=== PATIENT | female | born 1930 | race Caucasian/White ===

== ENCOUNTER 2017-01-02 12:24 | Inpatient (IN) | payer MEDICARE, OTHER ==
[~2017-01-02] VITALS: Ht 160 cm; Wt 69.0 kg
[~2017-01-02 12:24] MED LIST: ACET325T9 PO; ACET650T89 PO; ASPI325T4 PO; CALC-77 PO; CYAN10005 PO; DULO30CA43 PO; ENAL20TA PO; ESOM20CA PO; FEBU40TA PO; FERR325C PO; FERR325T3 PO; FURO20TA3 PO; GING550C PO; HYDR-965 PO; LEVO175T5 PO; LEVO200T5 PO; LOPE1LIQ7 PO; MECL25TA3 PO; METO50TA2 PO; NIFE60TA12 PO; POLY17PO5 PO; SULF1TAB24 PO; TOLT4CAP PO
--- NOTE | 2017-01-02 13:11 | PHYS DOC ---
Past Medical History Past Medical History: Arthritis, Constipation, Diabetes-Type II, Hypertension, [place], Renal Disease, Other Additional Past Medical Histor: torn rotator cuff -right, neurpathy,leaky valve ,CHRONIC PAIN,MAC DEGENERATI Past Surgical History: Cholecystectomy, Hysterectomy, Knee Replacement, Tonsillectomy, Other Additional Past Surgical Histo: hernia, back, cataract, detached retina, hammer toe, blader sling Alcohol Use: None Drug Use: None Adult General Chief Complaint Chief Complaint: NAUSEA/VOMITING/DIARRHA HPI HPI Patient is a 86 year old female who presents with nausea vomiting diarrhea and bradycardia. Patient states 11 AM today she became diaphoretic nauseated vomited. She had a bowel movement with black diarrhea stool with some trace red blood. Patient states she had a episode like this 6 months ago was hospitalized but they did not find a final obvious cause. Patient has a past history of coronary artery disease, bradycardia, hypothyroidism, hyperkalemia. Patient denies ever being a smoker. No alcohol use. Other surgical history of hysterectomy, cholecystectomy and appendectomy. Review of Systems Review of Systems Constitutional: Denies fever or chills Eyes: Denies change in visual acuity, redness, or eye pain HENT: Denies nasal congestion or sore throat Respiratory: Denies cough or shortness of breath Cardiovascular: No chest pain but bradycardic. GI: Denies abdominal pain. Positive nausea, vomiting, bloody stools and diarrhea : Denies dysuria or hematuria Musculoskeletal: Denies new back pain or joint pain Integument: Positive fungal rash under bilateral breasts, pannus and in genitalia. Neurologic: Denies headache, focal weakness or sensory changes Endocrine: Denies polyuria or polydipsia Current Medications Current Medications Current Medications Medications (Trade) Dose Ordered Sig/William Start Time Stop Time Status Last Admin Dose Admin Sodium Chloride (Iv Sodium Chloride 0.9% 1000ml Bag) 1,000 ml @ 120 mls/hr 1X ONCE 01/02/17 13:15 01/02/17 21:34 DC 01/02/17 13:38 120 MLS/HR Allergies Allergies Allergies Coded Allergies Type Severity Reaction Last Updated Verified fentanyl Allergy Intermediate rash with patch 04/25/16 Yes Physical Exam Physical Exam Constitutional: Well developed, well nourished, moderate acute distress, non- toxic appearance. HENT: Normocephalic, atraumatic, dry oropharynx , no oral exudates, nose normal. Eyes: PERRLA, EOMI, conjunctiva normal, no discharge. Neck: Normal range of motion, no tenderness, supple, no stridor. Cardiovascular:Heart bradycardia rate regular rhythm, no murmur Lungs & Thorax: Bilateral breath sounds clear to auscultation Abdomen: Bowel sounds normal, soft, no tenderness, no masses, no pulsatile masses. Skin: Warm, dry, fungal rash under bilateral breasts, pannus and genital area Back: No tenderness, no CVA tenderness. Extremities: No tenderness, no cyanosis, no clubbing, no edema. Neurologic: Alert and oriented X 3, normal motor function, normal sensory function, no focal deficits noted. Psychologic: Affect normal, judgement normal, mood normal. Current Patient Data Vital Signs Vital Signs Date Time Temp Pulse Resp B/P Pulse Ox O2 Delivery O2 Flow Rate FiO2 01/02/17 14:00 46 18 125/55 94 01/02/17 13:29 Room Air 01/02/17 12:24 97.7 97.7 Lab Values Laboratory Tests Test 01/02/17 12:40 01/02/17 13:15 01/02/17 13:40 White Blood Count 12.5x10^3/uL (4.0-11.0) H Red Blood Count 3.03x10^6/uL (3.50-5.40) L Hemoglobin 10.2g/dL (12.0-15.5) L Hematocrit 32.1% (36.0-47.0) L Mean Corpuscular Volume 106fL (79-100) H Mean Corpuscular Hemoglobin 34pg (25-35) Mean Corpuscular Hemoglobin Concent 32g/dL (31-37) Red Cell Distribution Width 16.3% (11.5-14.5) H Platelet Count 216x10^3/uL (140-400) Neutrophils (%) (Auto) 74% (31-73) H Lymphocytes (%) (Auto) 15% (24-48) L Monocytes (%) (Auto) 8% (0-9) Eosinophils (%) (Auto) 3% (0-3) Basophils (%) (Auto) 1% (0-3) Neutrophils # (Auto) 9.2x10^3uL (1.8-7.7) H Lymphocytes # (Auto) 1.9x10^3/uL (1.0-4.8) Monocytes # (Auto) 0.9x10^3/uL (0.0-1.1) Eosinophils # (Auto) 0.3x10^3/uL (0.0-0.7) Basophils # (Auto) 0.1x10^3/uL (0.0-0.2) Sodium Level 143mmol/L (136-145) Potassium Level 5.7mmol/L (3.5-5.1) H Chloride Level 111mmol/L (98-107) H Carbon Dioxide Level 19mmol/L (21-32) L Anion Gap 13 (6-14) Blood Urea Nitrogen 46mg/dL (7-20) H Creatinine 1.3mg/dL (0.6-1.0) H Estimated GFR (Cockcroft-Gault) 38.9 BUN/Creatinine Ratio 35 (6-20) H Glucose Level 96mg/dL (70-99) Calcium Level 8.7mg/dL (8.5-10.1) Total Bilirubin 0.2mg/dL (0.2-1.0) Aspartate Amino Transferase (AST) 19U/L (15-37) Alanine Aminotransferase (ALT) 14U/L (14-59) Alkaline Phosphatase 97U/L (46-116) Troponin I Quantitative < 0.017ng/mL (0.000-0.055) Total Protein 6.7g/dL (6.4-8.2) Albumin 3.2g/dL (3.4-5.0) L Albumin/Globulin Ratio 0.9 (1.0-1.7) L Lipase 208U/L (73-393) Urine Collection Type Unknown Urine Color Yellow Urine Clarity Cloudy Urine pH 5.0 Urine Specific [place] 1.010 Urine Protein 30mg/dL (NEG-TRACE) Urine Glucose (UA) Negativemg/dL (NEG) Urine Ketones (Stick) Negativemg/dL (NEG) Urine Blood Moderate (NEG) Urine Nitrite Negative (NEG) Urine Bilirubin Negative (NEG) Urine Urobilinogen Dipstick 0.2mg/dL (0.2 mg/dL) Urine Leukocyte Esterase Large (NEG) Urine RBC 6-10/HPF (0-2) Urine WBC >40/HPF (0-4) Urine Squamous Epithelial Cells Mod/LPF Urine Bacteria Many/HPF (0-FEW) Urine Hyaline Casts Moderate/HPF Stool Occult Blood Negative (NEG) Laboratory Tests 01/02/17 12:40 Laboratory Tests 01/02/17 12:40 Microbiology 01/02/17 Urine Culture - Final, Complete 01/02/17 Urine Culture Result 1 (ESTEBAN) - Final, Complete EKG EKG [] Interpretation Time: Sinus bradycardia with a rate of 45. Prolonged MO interval left axis deviation and incomplete right bundle branch block with left ventricular hypertrophy. Radiology/Procedures Radiology/Procedures [] Course & Med Decision Making Course & Med Decision Making Pertinent Labs and Imaging studies reviewed. (See chart for details) Discussed case with Dr. Clark dutton 42 he agreed with the patient requested GI consult with Dr. Daphne Yuen Disclaimer Alpa Disclaimer This electronic medical record was generated, in whole or in part, using a voice recognition dictation system. Departure Departure Impression: Primary Impression: Nausea & vomiting Additional Impressions: UTI (urinary tract infection) Lower GI bleed Fungal skin infection Disposition: 09 ADMITTED INPATIENT Admitting Physician: Bryn Rodas Condition: STABLE Referrals: RADHA BAUM MD (PCP) Problem Qualifiers SIRIA CHUA MD Jan 02, 2017 13:11
[2017-01-02 13:13] LABS: BASO # 0.1 x10^3/uL (0.0-0.2); BASO % 1 % (0-3); EOS % 3 % (0-3); HEMATOCRIT 32.1 % (36.0-47.0); HEMOGLOBIN 10.2 g/dL (12.0-15.5); LYMPH # 1.9 x10^3/uL (1.0-4.8); LYMPH % 15 % (24-48); MEAN CORPUSCULAR HEMOGLOBIN 34 pg (25-35); MEAN CORPUSCULAR HGB CONC 32 g/dL (31-37); MEAN CORPUSCULAR VOLUME 106 fL (79-100); MONO % 8 % (0-9); NEUT % 74 % (31-73); PLATELET COUNT 216 x10^3/uL (140-400); RED BLOOD COUNT 3.03 x10^6/uL (3.50-5.40); RED CELL DISTRIBUTION WIDTH 16.3 % (11.5-14.5); WHITE BLOOD COUNT 12.5 x10^3/uL (4.0-11.0)
[2017-01-02] MEDS ORDERED: IV NORMAL SALINE 1000ML BAG 1,000 ML IV ONE (13:15)
[2017-01-02 13:27] LABS: BILIRUBIN,URINE NEGATIVE (NEG); GLUCOSE,URINE NEGATIVE (NEG); NITRITE,URINE NEGATIVE (NEG); PROTEIN,URINE 30 mg/dL (NEG-TRACE); UROBILINOGEN,URINE 0.2 mg/dL (0.2 mg/dL)
[2017-01-02 13:30] LABS: CALCIUM 8.7 mg/dL (8.5-10.1); CREATININE 1.3 mg/dL (0.6-1.0); GFR 38.9; POTASSIUM 5.7 mmol/L (3.5-5.1)
[2017-01-02 13:35] LABS: ALBUMIN 3.2 g/dL (3.4-5.0); ALBUMIN/GLOBULIN RATIO 0.9 (1.0-1.7); TOTAL BILIRUBIN 0.2 mg/dL (0.2-1.0); TOTAL PROTEIN 6.7 g/dL (6.4-8.2)
--- NOTE | 2017-01-02 13:38 | RAD ---
Portable chest, 01/02/2017: History: Bradycardia, diaphoresis Comparison is made to a study from 09/29/2016. The heart size is normal. There is calcific plaquing and tortuosity of the thoracic aorta. The pulmonary vascularity is normal. No pulmonary infiltrates are seen. There is no evidence of pleural fluid. The bony structures are demineralized. Arthritic changes are evident at both shoulders. IMPRESSION: No acute cardiopulmonary abnormality is detected.
[2017-01-02 13:42] LABS: BACTERIA,URINE MANY /HPF (0-FEW); SQUAMOUS EPITHELIAL CELL,UR MOD /LPF; WBC,URINE >40 /HPF (0-4)
[2017-01-02 13:52] LABS: NEG OBC FOB NEG; POS OBC FOB POS
--- NOTE | 2017-01-02 14:13 | EKG ---
[facility] [address] [place] [address] Test Date: 2017-01-02 Test Time: 12:41:59 Pat Name: OSITO LOMELI Department: Room: Gender: F Associate Teacher: : [id number] Requested By: SIRIA CHUA Order Number: [id number] Reading MD: Measurements Intervals [place] Rate: 45 P: 61 PA: 252 QRS: -7 QRSD: 120 T: 142 QT: 472 QTc: 410 Interpretive Statements SINUS BRADYCARDIA PROLONGED PA INTERVAL LEFTWARD AXIS INCOMPLETE RIGHT BUNDLE BRANCH BLOCK LVH WITH REPOLARIZATION ABNORMALITY ABNORMAL ECG RI6.01 No previous ECG available for comparison
[2017-01-02 17:08] VITALS: BP 146/82
[2017-01-02] MEDS ORDERED: FURO20TA3 (18:40)
[2017-01-02] MEDS ORDERED: ENAL20TA PO (18:40)
[2017-01-02] MEDS ORDERED: CYAN50TA PO (18:40)
[2017-01-02] MEDS ORDERED: GABA300C8 (18:40)
[2017-01-02] MEDS ORDERED: TOLT4CAP PO (18:40)
[2017-01-02] MEDS ORDERED: NIFE60TA16 PO (18:40)
[2017-01-02] MEDS ORDERED: DULO60CA44 (18:40)
[2017-01-02] MEDS ORDERED: LOSA50TA6 (18:40)
[2017-01-02] MEDS ORDERED: LEVO200T PO (18:40)
[2017-01-02] MEDS ORDERED: CALC500T27 PO (18:40)
[2017-01-02] MEDS ORDERED: METO50TA2 PO (18:40)
[2017-01-02 19:59] VITALS: BP 137/60
[2017-01-02] MEDS: GABAPENTIN 300 MG CAPSULE. PO SCH ×2 (23:00→23:05)
[2017-01-02] MEDS: CEFTRIAXONE SODIUM 1 GM in IV NORMAL SALINE 50ML 50 ML IV SCH (23:06)
[2017-01-02] MEDS: IV NORMAL SALINE 1000ML BAG 1,000 ML IV SCH (23:06)
[2017-01-02 23:59] VITALS: BP 127/49
[2017-01-03] VITALS (7 sets, daily range): BP systolic 123–156; BP diastolic 46–71
[2017-01-03] MEDS: ACETAMINOPHEN 325 MG TABLET. PO PRN ×3 (04:18→17:12)
[2017-01-03 05:27] LABS: BASO # 0.1 x10^3/uL (0.0-0.2); BASO % 1 % (0-3); EOS % 3 % (0-3); HEMOGLOBIN 8.2 g/dL (12.0-15.5); LYMPH # 1.7 x10^3/uL (1.0-4.8); LYMPH % 18 % (24-48); MEAN CORPUSCULAR HEMOGLOBIN 34 pg (25-35); MEAN CORPUSCULAR HGB CONC 32 g/dL (31-37); MEAN CORPUSCULAR VOLUME 108 fL (79-100); MONO % 9 % (0-9); NEUT % 69 % (31-73); PLATELET COUNT 156 x10^3/uL (140-400); RED BLOOD COUNT 2.42 x10^6/uL (3.50-5.40); RED CELL DISTRIBUTION WIDTH 15.9 % (11.5-14.5); WHITE BLOOD COUNT 9.6 x10^3/uL (4.0-11.0)
[2017-01-03 05:50] LABS: CALCIUM 8.1 mg/dL (8.5-10.1); CREATININE 1.2 mg/dL (0.6-1.0); GFR 42.7; POTASSIUM 4.5 mmol/L (3.5-5.1)
[2017-01-03 06:05] LABS: FREE T4 0.71 ng/dL (0.76-1.46)
[2017-01-03] MEDS: LEVOTHYROXINE 100 MCG TABLET PO SCH (06:38)
[2017-01-03] MEDS: IV NORMAL SALINE 1000ML BAG 1,000 ML IV SCH ×3 (06:38→23:30)
[2017-01-03] MEDS ORDERED: FUROSEMIDE 20 MG/2 ML VIAL IVP ONE (08:00)
[2017-01-03] MEDS: GABAPENTIN 300 MG CAPSULE. PO SCH ×2 (08:59→21:11)
[2017-01-03] MEDS: PANTOPRAZOLE 40 MG TABLET. PO SCH (08:59)
[2017-01-03] MEDS: DULOXETINE HCL 30 MG CAPSULE.DR. PO SCH (08:59)
[2017-01-03] MEDS: FERROUS SULFATE 325 MG TABLET PO SCH ×3 (08:59→17:12)
[2017-01-03] MEDS ORDERED: LISINOPRIL 40 MG TABLET. PO SCH (09:00)
[2017-01-03] MEDS ORDERED: METOPROLOL TART IMMED RELEASE 50 MG TABLET PO SCH (09:00)
[2017-01-03] MEDS ORDERED: ACETAMINOPHEN 650 MG TABLET.ER PO SCH (09:00)
[2017-01-03] MEDS: NIFEDIPINE ER 30 MG TAB.ER.24H PO SCH ×2 (09:00→21:11)
[2017-01-03] MEDS: CYANOCOBALAMIN (VITAMIN B-12) 1,000 MCG TABLET. PO SCH (09:00)
[2017-01-03] MEDS: OXYBUTYNIN CHLORIDE 5 MG TABLET PO SCH ×3 (09:00→21:11)
[2017-01-03] MEDS ORDERED: HYDROCODONE/APAP 7.5/325MG TABLET. PO SCH (09:00)
[2017-01-03] MEDS: CALCIUM CARBONATE 500 MG TABLET PO SCH ×2 (09:00→21:11)
--- NOTE | 2017-01-03 10:12 | PDOC ---
Provider Note Provider Note See admission H&P dictation #[id number] Impression: 1. Melena with anemia and excessive aspirin use: 2. Abnormal UA consistent with UTI: 3. Prerenal azotemia secondary to vasomotor etiology and dehydration: 4. Hyperkalemia secondary to dehydration: 5. Bradycardia: 6. Hypertension: 7. Debilitation: 8. Hypothyroidism: 9. Mild protein malnutrition: 10. Nausea and vomitin. CODE STATUS: Discussed with patient while her was in the room. She desires to be a DNR status. She is capable of making her own decisions and we' ll proceed with changing her to a DNR status. LENNOX JENKINS MD Jan 03, 2017 10:12
[2017-01-03] MEDS: CLOTRIMAZOLE 1% TOPICAL CREAM 15GM TUBE. TP SCH ×2 (11:09→21:11)
[2017-01-03] MEDS: NYSTATIN TOPICAL POWDER 15GM BOTTLE. TP SCH ×2 (11:09→21:10)
--- NOTE | 2017-01-03 12:02 | PDOC2 ---
CONSULT Date of Consult Date of Consult DATE: 01/03/17 TIME: 11:34 Reason for Consult Reason for Consult: Anemia/GIB? Referring Physician Referring Physician: Dr. Rodas Source Source: Chart review, Patient History of Present Illness Reason for Visit: 86 y/o female presented to ER after "spell". Arose from sleep to urinate; while on toilet, stooled rather spontaneously and became diaphoretic, then nausea and non-bloody emesis. Stool was dark-colored, but she takes po iron chronically; this was heme negative in the ER. Has had similar spells in the past and generally noted to be bradycardic with them as on this occasion. She has apparently had prior falls related to these. There is no h/o much typical heartburn or dysphagia, though office records indicate long-standing problems with nausea. She has had multiple EGD's in the past, lastly in 2005, w/o PUD noted; "gastritis" is generally mentioned. Gastric biopsies have never shown evidence for H.pylori and have changes c/w "reactive gastropathy" that we might expect from ASA/NSAID use. She is prescribed a PPI chronically and states compliant. She is s/p yo. There is no h/o liver or pancreatic disease. No current tobacco or alcohol use. She has been on ASA daily. Stools seem to be somewhat variable, going days w/o a stool, then passing a firm "plug", followed by multiple loose stools. Miralax and Imodium are both listed as home meds. She may have had a minor amount of bright red blood per rectum recently. Mentioned in her office chart is a h/o colon polyps, though >one colonoscopy since the late with diverticulosis and hemorrhoids noted, but no polyps. Last colonoscopy was in 2006. There is a h/o long-standing anemia. Review of past values here show a usual baseline hemoglobin of ~8. Indices are macrocytic, though B12 and folate levels are normal. Iron studies here were most consistent with "anemia of chronic disease". I was not able to locate any small bowel biopsies or serology re: celiac disease in her office chart. Past Medical History Cardiovascular: CAD, HTN, [place], Valve insufficiency CENTRAL NERVOUS SYSTEM: Periperal neuropathy Heme/Onc: Anemia NOS Musculoskeletal: Osteoarthritis Renal/: Chronic renal insuff Endocrine: Diabetes Past Surgical History Past Surgical History: Cholecystectomy, Cataract Removal, Hernia Repair, Total knee replacement, Tonsillectomy, Hysterectomy, Other (repair hammertoe, bladder sling, address retinal detachment) Family History Family History Not pertinent due to age. Social History Quit ALCOHOL: none Drugs: None Current Problem List Problem List Problems Medical Problems: (1) Fungal skin infection Status: Acute (2) Hypokalemia Status: Acute (3) Lower GI bleed Status: Acute (4) Nausea & vomiting Status: Acute (5) UTI (urinary tract infection) Status: Acute (6) Weakness Status: Acute Current Medications Current Medications Current Medications Sodium Chloride (Iv Sodium Chloride 0.9% 1000ml Bag) 1,000 ml @ 120 mls/hr 1X ONCE IV Last administered on 01/02/17 13:38; Start 01/02/17 at 13:15; Stop at 21:34; Status DC Acetaminophen (Tylenol Arthritis) 650 mg TID PO ; Start 01/03/17 at 09:00; Status Cancel Calcium Carbonate/ Glycine (Oscal) 500 mg BID PO Last administered on 01/03/17 09:00; Start 01/03/17 at 09:00 Cyanocobalamin (Vitamin B-12) 1,000 mcg DAILY PO Last administered on 01/03/17 09:00; Start 01/03/17 at 09:00 Duloxetine HCl (Cymbalta) 60 mg DAILY PO Last administered on 01/03/17 08:59; Start 01/03/17 at 09:00 Gabapentin (Neurontin) 300 mg BID PO Last administered on 01/03/17 08:59; Start 01/02/17 at 23:00 Acetaminophen/ Hydrocodone Bitart (Lortab 7.5/325) 7.5 tab QID PO ; Start at 09:00; Status Cancel Metoprolol Tartrate (Lopressor) 50 mg BID PO ; Start 01/03/17 at 09:00; Stop 01/03 at 09:00; Status DC Lisinopril (Prinivil) 40 mg BID PO ; Start 01/03/17 at 09:00; Stop 01/03/17 at 09: 00; Status DC Pantoprazole Sodium (Protonix) 40 mg DAILYAC PO Last administered on 01/03/17 08:59; Start 01/03/17 at 07:30 Ferrous Sulfate (Feosol) 325 mg TIDWMEALS PO Last administered on 01/03/17 08: 59; Start 01/03/17 at 08:00 Levothyroxine Sodium (Synthroid) 200 mcg DAILY07 PO Last administered on 06:38; Start 01/03/17 at 07:00 Nifedipine (Procardia Xl) 60 mg BID PO Last administered on 01/03/17 09:00; Start 01/03/17 at 09:00 Oxybutynin Chloride 5 mg 5 mg [id number] PO Last administered on 01/03/17 09:00; Start 01/03/17 at 09:00 Ceftriaxone Sodium 1 gm/ Sodium Chloride 50 ml @ 100 mls/hr QHS IV Last administered on 01/02/17 23:06; Start 01/02/17 at 23:00 Sodium Chloride (Iv Sodium Chloride 0.9% 1000ml Bag) 1,000 ml @ 120 mls/hr Q8H20M IV Last administered on 01/03/17 06:38; Start 01/02/17 at 22:30 Furosemide (Lasix) 20 mg 1X ONCE IVP Last administered on 01/03/17 09:01; Start 01/03/17 at 08:00; Stop 01/03/17 at 08:01; Status DC Acetaminophen (Tylenol) 650 mg PRN Q6HRS PRN PO MILD PAIN / TEMP Last administered on 01/03/17 10:44; Start 01/03/17 at 04:15 Nystatin (Nystop) 1 ama BID TP Last administered on 01/03/17 11:09; Start at 11:00 Clotrimazole (Lotrimin) 1 ama BID TP Last administered on 01/03/17 11:09; Start 01/03/17 at 11:00 Active Scripts Active Bactrim Ds Tablet (Sulfamethoxazole/Trimethoprim) 1 Each Tablet 1 Tab PO BID Metoprolol Tartrate 50 Mg Tablet 0.5 Tab PO BID Reported Calcium (Calcium Carbonate) 500 Mg Tablet 500 Mg PO Vitamin B-12 (Cyanocobalamin (Vitamin B-12)) 50 Mcg Tablet 50 Mcg PO Synthroid (Levothyroxine Sodium) 200 Mcg Tablet 200 Mcg PO DAILYAC Detrol La (Tolterodine Tartrate) 4 Mg Cap.er.24h 4 Mg PO DAILY Metoprolol Tartrate 50 Mg Tablet 1 Tab PO BID Enalapril Maleate 20 Mg Tablet 1 Tab PO BID Losartan Potassium 50 Mg Tablet 50 DAILY Furosemide 20 Mg Tablet 20 PRN DAILY PRN Duloxetine Hcl 60 Mg Capsule.dr 60 Mg DAILY Gabapentin 300 Mg Capsule 300 Mg BID Nifedipine Er (Nifedipine) 60 Mg Tab.er.24 60 Mg PO BID Vitamin B-12 (Cyanocobalamin (Vitamin B-12)) 1,000 Mcg Tablet 1.5 Tab PO DAILY Imodium A-D (Loperamide Hcl) 1 Mg/7.5 Ml Liquid 1 Mg PO Miralax (Polyethylene Glycol 3350) 17 Gm Powd.pack 1 Packet PO DAILY Nexium Capsule (Esomeprazole Magnesium) 20 Mg Capsule.dr 1 Cap PO DAILY Levothyroxine Sodium 200 Mcg Tablet 1 Tab PO DAILY Arthritis Pain (Acetaminophen) 650 Mg Tablet.er 650 Mg PO TID [place] 7.5-325 Tablet (Acetaminophen/Hydrocodone Bitart) 1 Each Tablet 7.5 Tab PO QID Enalapril Maleate 20 Mg Tablet 20 Mg PO BID Nifedical Xl (Nifedipine) 60 Mg Tab.er.24 60 Mg PO DAILY Ameena Root 550 Mg Capsule 550 Mg PO Q6HRS Aspirin 325 Mg Tablet 325 Mg PO BID Calcium + D3 Er Tablet (Calcium Carb & Cit/Vitamin D3) 1 Each Tablet.er 1 Each PO BID Ferrous Sulfate 325 Mg Tablet.dr 325 Mg PO TIDAC Uloric (Febuxostat) 40 Mg Tablet 40 Mg PO DAILY Duloxetine Hcl 30 Mg Capsule.dr 60 Mg PO DAILY Detrol La (Tolterodine Tartrate) 4 Mg Cap.er.24h 4 Mg PO DAILY Allergies Allergies: Coded Allergies: fentanyl (Verified Allergy, Intermediate, rash with patch, 04/25/16) ROS Review of System 10-point review otherwise negative. Physical Exam General: Alert, Oriented X3, Cooperative, No acute distress Lungs: Clear to auscultation Heart: Regular rate, Normal S1, Normal S2, No murmurs Abdomen: Normal bowel sounds, Soft, No tenderness, No hepatosplenomegaly, No masses Extremities: No cyanosis, No edema Skin: No significant lesion Neuro: Normal speech, Strength at 5/5 X4 ext, Normal tone, Sensation intact, Cranial nerves 3-12 NL, Reflexes 2+ Psych/Mental Status: Mental status NL, Mood NL MUSCULOSKELETAL: No deformity, No swelling Vitals VITALS Vital Signs Date Time Temp Pulse Resp B/P Pulse Ox O2 Delivery O2 Flow Rate FiO2 01/03/17 09:00 65 123/46 01/03/17 08:15 Room Air 01/03/17 07:00 97.8 20 95 97.8 Labs Labs Laboratory Tests Test 01/02/17 12:40 01/02/17 13:15 01/02/17 13:40 01/03/17 04:35 White Blood Count 12.5x10^3/uL (4.0-11.0) 9.6x10^3/uL (4.0-11.0) Red Blood Count 3.03x10^6/uL (3.50-5.40) 2.42x10^6/uL (3.50-5.40) Hemoglobin 10.2g/dL (12.0-15.5) 8.2g/dL (12.0-15.5) Hematocrit 32.1% (36.0-47.0) 26.0% (36.0-47.0) Mean Corpuscular Volume 106fL (79-100) 108fL (79-100) Mean Corpuscular Hemoglobin 34pg (25-35) 34pg (25-35) Mean Corpuscular Hemoglobin Concent 32g/dL (31-37) 32g/dL (31-37) Red Cell Distribution Width 16.3% (11.5-14.5) 15.9% (11.5-14.5) Platelet Count 216x10^3/uL (140-400) 156x10^3/uL (140-400) Neutrophils (%) (Auto) 74% (31-73) 69% (31-73) Lymphocytes (%) (Auto) 15% (24-48) 18% (24-48) Monocytes (%) (Auto) 8% (0-9) 9% (0-9) Eosinophils (%) (Auto) 3% (0-3) 3% (0-3) Basophils (%) (Auto) 1% (0-3) 1% (0-3) Neutrophils # (Auto) 9.2x10^3uL (1.8-7.7) 6.6x10^3uL (1.8-7.7) Lymphocytes # (Auto) 1.9x10^3/uL (1.0-4.8) 1.7x10^3/uL (1.0-4.8) Monocytes # (Auto) 0.9x10^3/uL (0.0-1.1) 0.9x10^3/uL (0.0-1.1) Eosinophils # (Auto) 0.3x10^3/uL (0.0-0.7) 0.3x10^3/uL (0.0-0.7) Basophils # (Auto) 0.1x10^3/uL (0.0-0.2) 0.1x10^3/uL (0.0-0.2) Sodium Level 143mmol/L (136-145) 145mmol/L (136-145) Potassium Level 5.7mmol/L (3.5-5.1) 4.5mmol/L (3.5-5.1) Chloride Level 111mmol/L (98-107) 114mmol/L (98-107) Carbon Dioxide Level 19mmol/L (21-32) 19mmol/L (21-32) Anion Gap 13 (6-14) 12 (6-14) Blood Urea Nitrogen 46mg/dL (7-20) 38mg/dL (7-20) Creatinine 1.3mg/dL (0.6-1.0) 1.2mg/dL (0.6-1.0) Estimated GFR (Cockcroft-Gault) 38.9 42.7 BUN/Creatinine Ratio 35 (6-20) Glucose Level 96mg/dL (70-99) 85mg/dL (70-99) Calcium Level 8.7mg/dL (8.5-10.1) 8.1mg/dL (8.5-10.1) Total Bilirubin 0.2mg/dL (0.2-1.0) Aspartate Amino Transf (AST/SGOT) 19U/L (15-37) Alanine Aminotransferase (ALT/SGPT) 14U/L (14-59) Alkaline Phosphatase 97U/L (46-116) Troponin I Quantitative < 0.017ng/mL (0.000-0.055) Total Protein 6.7g/dL (6.4-8.2) Albumin 3.2g/dL (3.4-5.0) Albumin/Globulin Ratio 0.9 (1.0-1.7) Lipase 208U/L (73-393) Urine Collection Type Unknown Urine Color Yellow Urine Clarity Cloudy Urine pH 5.0 Urine Specific [place] 1.010 Urine Protein 30mg/dL (NEG-TRACE) Urine Glucose (UA) Negativemg/dL (NEG) Urine Ketones (Stick) Negativemg/dL (NEG) Urine Blood Moderate (NEG) Urine Nitrite Negative (NEG) Urine Bilirubin Negative (NEG) Urine Urobilinogen Dipstick 0.2mg/dL (0.2 mg/dL) Urine Leukocyte Esterase Large (NEG) Urine RBC 6-10/HPF (0-2) Urine WBC >40/HPF (0-4) Urine Squamous Epithelial Cells Mod/LPF Urine Bacteria Many/HPF (0-FEW) Urine Hyaline Casts Moderate/HPF Stool Occult Blood Negative (NEG) Thyroid Stimulating Hormone (TSH) 1.667uIU/mL (0.358-3.74) Free Thyroxine 0.71ng/dL (0.76-1.46) Laboratory Tests Test 01/02/17 12:40 01/02/17 13:15 01/02/17 13:40 01/03/17 04:35 White Blood Count 12.5x10^3/uL (4.0-11.0) 9.6x10^3/uL (4.0-11.0) Red Blood Count 3.03x10^6/uL (3.50-5.40) 2.42x10^6/uL (3.50-5.40) Hemoglobin 10.2g/dL (12.0-15.5) 8.2g/dL (12.0-15.5) Hematocrit 32.1% (36.0-47.0) 26.0% (36.0-47.0) Mean Corpuscular Volume 106fL (79-100) 108fL (79-100) Mean Corpuscular Hemoglobin 34pg (25-35) 34pg (25-35) Mean Corpuscular Hemoglobin Concent 32g/dL (31-37) 32g/dL (31-37) Red Cell Distribution Width 16.3% (11.5-14.5) 15.9% (11.5-14.5) Platelet Count 216x10^3/uL (140-400) 156x10^3/uL (140-400) Neutrophils (%) (Auto) 74% (31-73) 69% (31-73) Lymphocytes (%) (Auto) 15% (24-48) 18% (24-48) Monocytes (%) (Auto) 8% (0-9) 9% (0-9) Eosinophils (%) (Auto) 3% (0-3) 3% (0-3) Basophils (%) (Auto) 1% (0-3) 1% (0-3) Neutrophils # (Auto) 9.2x10^3uL (1.8-7.7) 6.6x10^3uL (1.8-7.7) Lymphocytes # (Auto) 1.9x10^3/uL (1.0-4.8) 1.7x10^3/uL (1.0-4.8) Monocytes # (Auto) 0.9x10^3/uL (0.0-1.1) 0.9x10^3/uL (0.0-1.1) Eosinophils # (Auto) 0.3x10^3/uL (0.0-0.7) 0.3x10^3/uL (0.0-0.7) Basophils # (Auto) 0.1x10^3/uL (0.0-0.2) 0.1x10^3/uL (0.0-0.2) Sodium Level 143mmol/L (136-145) 145mmol/L (136-145) Potassium Level 5.7mmol/L (3.5-5.1) 4.5mmol/L (3.5-5.1) Chloride Level 111mmol/L (98-107) 114mmol/L (98-107) Carbon Dioxide Level 19mmol/L (21-32) 19mmol/L (21-32) Anion Gap 13 (6-14) 12 (6-14) Blood Urea Nitrogen 46mg/dL (7-20) 38mg/dL (7-20) Creatinine 1.3mg/dL (0.6-1.0) 1.2mg/dL (0.6-1.0) Estimated GFR (Cockcroft-Gault) 38.9 42.7 BUN/Creatinine Ratio 35 (6-20) Glucose Level 96mg/dL (70-99) 85mg/dL (70-99) Calcium Level 8.7mg/dL (8.5-10.1) 8.1mg/dL (8.5-10.1) Total Bilirubin 0.2mg/dL (0.2-1.0) Aspartate Amino Transf (AST/SGOT) 19U/L (15-37) Alanine Aminotransferase (ALT/SGPT) 14U/L (14-59) Alkaline Phosphatase 97U/L (46-116) Troponin I Quantitative < 0.017ng/mL (0.000-0.055) Total Protein 6.7g/dL (6.4-8.2) Albumin 3.2g/dL (3.4-5.0) Albumin/Globulin Ratio 0.9 (1.0-1.7) Lipase 208U/L (73-393) Urine Collection Type Unknown Urine Color Yellow Urine Clarity Cloudy Urine pH 5.0 Urine Specific [place] 1.010 Urine Protein 30mg/dL (NEG-TRACE) Urine Glucose (UA) Negativemg/dL (NEG) Urine Ketones (Stick) Negativemg/dL (NEG) Urine Blood Moderate (NEG) Urine Nitrite Negative (NEG) Urine Bilirubin Negative (NEG) Urine Urobilinogen Dipstick 0.2mg/dL (0.2 mg/dL) Urine Leukocyte Esterase Large (NEG) Urine RBC 6-10/HPF (0-2) Urine WBC >40/HPF (0-4) Urine Squamous Epithelial Cells Mod/LPF Urine Bacteria Many/HPF (0-FEW) Urine Hyaline Casts Moderate/HPF Stool Occult Blood Negative (NEG) Thyroid Stimulating Hormone (TSH) 1.667uIU/mL (0.358-3.74) Free Thyroxine 0.71ng/dL (0.76-1.46) Drop in hemoglobin, I suspect dilutional. Images Images CT reviewed. Assessment/Plan Assessment/Plan IMP: 1. Anemia, fairly long-standing. Endoscopies over the years w/o lesion(s) to account for this. No w/u I can find re: celiac disease, though nature of anemia would not suggest malabsorption or isolated iron deficiency as the problem. She does not recall ever having seen a stem processing machine operator. Doubt there would be any findings if endoscopy repeated that would alter management. Little evidence to suggest any recent "active" bleeding. 2. Long h/o dyspepsia/nausea--GERD would be suspect, even if not seen at endoscopy. 3. S/p yo 4. Remote h/o colon polyps? 5. Diverticulosis. 6. Hemorrhoids. These likely account for any recent minor rectal bleeding. 7. "Spells"--these seem suggestive of some sort of vasovagal event. REC: 1. Continue iron, B12 and/or folate supplements. 2. Could consider hematology opinion, but doesn't seem likely to alter management. 3. Observe for any overt, meaningful GI bleeding. 4. Would an event monitor be helpful re: the "spells"? --other pending. Thank you for allowing us to assist in the care of this patient. Please call if questions. IRVING RAMIREZ MD Jan 03, 2017 12:02
--- NOTE | 2017-01-03 12:46 | HP ---
ADMIT DATE: 01/03/2017 ATTENDING PHYSICIAN: Bryn Jenkins M.D. CHIEF COMPLAINT: Nausea, vomiting, diarrhea with black stools. HISTORY OF PRESENT ILLNESS: The patient is an 86-year-old female with a history of multiple medical problems who presented after having some constipation a couple of days ago, which then turned to episodes of emesis and diarrhea. She denies any blood or hematemesis, but she does note that the stools were black in color. She attributed that to the iron that she normally takes. She was having some abdominal pain primarily more on the right side and lower abdomen. She also felt sweaty and diaphoretic when that happened. Emesis was on the day of admission along with the onset of the diarrhea and that is what prompted her to come to the Emergency Room for further evaluation. She denied any shortness of breath or chest pain, although she did say her heart has been beating more quickly. PAST MEDICAL HISTORY: Significant for hypertension, chronic kidney disease stage 3, hypothyroidism, anemia, overactive bladder, osteopenia, gout, depression, osteoarthritis, B12 deficiency, peripheral neuralgia, chronic anxiety, gait instability, osteopenia, mitral regurgitation, glucose intolerance, prior CVA. PAST SURGICAL HISTORY: Total hysterectomy with bilateral salpingectomy and oophorectomy, total left knee arthroplasty, lumbar laminectomy, cholecystectomy, tonsillectomy, cataract extraction, detached retina repair, hammertoe procedure, bladder sling, hernia repair. SOCIAL HISTORY: She lives at home with her . She has family in the area. She denies any significant alcohol use. She had smoked in the remote past, but only smoked less than 5 years. FAMILY HISTORY: Mother with colon cancer at age 90. Father at age 67 with a stroke. ALLERGIES TO MEDICATIONS: FENTANYL. MEDICATIONS: At the time of admission; Tylenol 650 mg p.o. t.i.d., aspirin 325 mg this supposed to b.i.d., but the patient actually states that she was taking four pills a day, calcium carbonate with vitamin D 1 p.o. b.i.d., vitamin B12 1500 mcg p.o. daily, Cymbalta 60 mg p.o. daily, Nexium 40 mg p.o. daily, Uloric 40 mg p.o. daily, iron 325 mg p.o. t.i.d., Lasix 20 mg p.o. daily p.r.n., gabapentin 300 mg p.o. b.i.d., shona root q.i.d., [place] 7.5/325 one p.o. q.i.d., levothyroxine 200 mcg p.o. daily, Imodium p.r.n., losartan 50 mg p.o. daily, Lopressor 50 mg p.o. b.i.d., nifedipine XL 60 mg p.o. daily, MiraLax 1 packet p.o. daily, Detrol-LA 4 mg p.o. daily. Although, the patient is not actually sure, if she is taking all these medications. Also, she is taking cholestyramine 4 grams p.o. b.i.d. p.r.n. diarrhea. REVIEW OF SYSTEMS: The patient denies any fevers. Denies any congestion. She has been swallowing okay. She denies any shortness of breath or cough. She denies any chest pain. She did have some palpitations, but otherwise denies any irregular beat that was mostly when she was having emesis. She has been urinating frequently. She denies any hematuria or dysuria. She has had some lower extremity swelling that has not been significant lately and usually resolves mostly on its own. She does have varicose veins. She has been having difficulty with ambulation secondary to her knee pain and she has had weakness. She has been receiving physical therapy at home. She does have decreased sensation and pain in the legs from neuropathy. Her mood is doing okay otherwise. PHYSICAL EXAMINATION: VITAL SIGNS: At the time of admission, temperature 97.7, pulse 48, respiratory rate 20, blood pressure 128/57 with O2 sat of 96% on room air. GENERAL: The patient is well developed and nourished. She is lying in bed in no acute distress. She is alert and oriented x 3. HEENT: The pupils are equal and round. The extraocular motions are intact. The oropharynx is slightly dry. There is erythema in the area around the mouth primarily to the right and lower lip, it does not have a distinct border crusting. NECK: Without JVD, no bruit auscultated, no thyromegaly. CHEST: Clear to auscultation with mildly decreased breath sounds at the bases, more on the left than the right. CARDIOVASCULAR: The heart has a regular rate and rhythm without murmur. ABDOMEN: Positive bowel sounds, soft, minimally distended. There is some tenderness to palpation primarily in the lower quadrants. There is no guarding or rebound. EXTREMITIES: There is no edema. There are varicose veins. NEUROLOGIC: She moves the extremities symmetrically. Sensation is intact to light touch on the feet and upper extremities. PSYCHIATRIC: Mood and affect appear appropriate. LABORATORY DATA: At the time of admission, WBC 12.5, hemoglobin 10.2, hematocrit 32.1, platelets 216. UA shows specific gravity 1.010, moderate blood, large leukocyte esterase, 6-10 rbc's, greater than 40 WBCs, moderate epithelial cells, many bacteria, moderate hyaline casts. Stool occult blood was negative. Sodium 143, potassium 5.7, chloride 111, BUN 46, creatinine 1.3, glucose 96. LFTs within normal limits. Troponin less than 0.01, albumin 3.2, lipase was 208, free T4 is 0.71. Chest x-ray shows no acute cardiopulmonary abnormality. There are arthritic changes of both shoulders. EKG shows a sinus bradycardia with a rate of 45 with a prolonged [place] interval, left axis deviation, incomplete right bundle branch block with apparent left ventricular hypertrophy on the preliminary read. IMPRESSION: 1. Melanoma with anemia and excessive use of aspirin. 2. Abnormal urinalysis consistent with urinary tract infection. 3. Prerenal azotemia secondary to vasomotor etiology and dehydration. 4. Hyperkalemia secondary to dehydration. 5. Bradycardia. 6. Hypertension. 7. Debilitation. 8. Hypothyroidism. 9. Mild protein malnutrition. 10. Nausea and vomiting with uncertain etiology. PLAN: The patient is admitted. GI is consulted. We will give her IV fluids. We will monitor her potassium which is improved overnight with IV fluids and we will begin her on Rocephin empirically for UTI until cultures are returned. We will continue to monitor hemoglobin as it did decrease from 10.28, transfuse as needed. We will stop her beta blockers secondary to bradycardia and see if that helps to improve that. We will continue her thyroid medication at present. We will have physical therapy see the patient. Nutrition to see the patient. We will continue her other home medications, but will discontinue the aspirin for now until we have further idea of her hemoglobin and bleeding status. BRYN JENKINS MD DR: Jose JOB#: [id number] / [id number]
[2017-01-03] MEDS: CEFTRIAXONE SODIUM 1 GM in IV NORMAL SALINE 50ML 50 ML IV SCH (21:10)
[2017-01-04] VITALS (10 sets, daily range): BP systolic 120–147; BP diastolic 48–77
[2017-01-04] MEDS: ACETAMINOPHEN 325 MG TABLET. PO PRN ×2 (01:54→08:07)
[2017-01-04 04:48] LABS: BASO # 0.1 x10^3/uL (0.0-0.2); BASO % 1 % (0-3); EOS % 4 % (0-3); HEMATOCRIT 23.4 % (36.0-47.0); HEMOGLOBIN 7.5 g/dL (12.0-15.5); LYMPH # 1.6 x10^3/uL (1.0-4.8); LYMPH % 21 % (24-48); MEAN CORPUSCULAR HEMOGLOBIN 34 pg (25-35); MEAN CORPUSCULAR HGB CONC 32 g/dL (31-37); MEAN CORPUSCULAR VOLUME 105 fL (79-100); MONO % 11 % (0-9); NEUT % 63 % (31-73); PLATELET COUNT 160 x10^3/uL (140-400); RED BLOOD COUNT 2.23 x10^6/uL (3.50-5.40); RED CELL DISTRIBUTION WIDTH 15.8 % (11.5-14.5); WHITE BLOOD COUNT 7.7 x10^3/uL (4.0-11.0)
[2017-01-04 05:01] LABS: ALBUMIN 2.3 g/dL (3.4-5.0); ALBUMIN/GLOBULIN RATIO 0.8 (1.0-1.7); CALCIUM 7.9 mg/dL (8.5-10.1); GFR 52.7; POTASSIUM 4.1 mmol/L (3.5-5.1); TOTAL BILIRUBIN 0.1 mg/dL (0.2-1.0); TOTAL PROTEIN 5.1 g/dL (6.4-8.2)
[2017-01-04] MEDS: LEVOTHYROXINE 100 MCG TABLET PO SCH (05:51)
[2017-01-04] MEDS: FERROUS SULFATE 325 MG TABLET PO SCH ×3 (07:52→17:21)
[2017-01-04] MEDS: PANTOPRAZOLE 40 MG TABLET. PO SCH (07:52)
[2017-01-04] MEDS: OXYBUTYNIN CHLORIDE 5 MG TABLET PO SCH ×3 (08:08→20:07)
[2017-01-04] MEDS: NIFEDIPINE ER 30 MG TAB.ER.24H PO SCH ×2 (08:08→20:07)
[2017-01-04] MEDS: CALCIUM CARBONATE 500 MG TABLET PO SCH ×2 (08:08→20:07)
[2017-01-04] MEDS: CYANOCOBALAMIN (VITAMIN B-12) 1,000 MCG TABLET. PO SCH (08:09)
[2017-01-04] MEDS: GABAPENTIN 300 MG CAPSULE. PO SCH ×2 (08:09→20:07)
[2017-01-04] MEDS: DULOXETINE HCL 30 MG CAPSULE.DR. PO SCH (08:09)
[2017-01-04] MEDS: IV NORMAL SALINE 1000ML BAG 1,000 ML IV SCH ×3 (10:15→20:05)
[2017-01-04] MEDS: NYSTATIN TOPICAL POWDER 15GM BOTTLE. TP SCH ×2 (10:16→20:06)
[2017-01-04] MEDS: CLOTRIMAZOLE 1% TOPICAL CREAM 15GM TUBE. TP SCH ×2 (10:16→20:06)
[2017-01-04] MEDS ORDERED: FUROSEMIDE 20 MG/2 ML VIAL IV PRN (10:30)
[2017-01-04] MEDS ORDERED: DIPHENHYDRAMINE HCL 25 MG CAPSULE PO PRN (10:30)
[2017-01-04] MEDS ORDERED: CHOLESTYRAMINE/ASPARTAME 4 GM PACKET PO PRN (10:30)
--- NOTE | 2017-01-04 10:53 | PDOC ---
SUBJECTIVE Subjective Some diarrhea. Black stools. Still with some abdominal discomfort in the upper and lower abdomen. Was able to tolerate clear liquids without any difficulty. Denies any shortness of breath or chest pain. Has been sitting up in the chair. OBJECTIVE Vital Signs Vital Signs Date Time Temp Pulse Resp B/P Pulse Ox O2 Delivery O2 Flow Rate FiO2 01/04/17 08:14 Room Air 01/04/17 08:08 72 137/52 01/04/17 07:00 98.2 76 20 122/74 98 Nasal Cannula 2.0 98.2 01/04/17 03:29 97.6 72 20 137/52 96 Room Air 97.6 01/03/17 23:03 97.0 72 20 142/52 94 Room Air 97.0 01/03/17 21:11 76 156/71 01/03/17 20:23 97.3 76 18 156/71 97 Room Air 97.3 01/03/17 20:00 Room Air 01/03/17 19:00 97.3 76 18 156/71 97 Room Air 97.3 01/03/17 15:00 98.4 60 14 138/50 93 Room Air 98.4 01/03/17 11:00 94.1 59 20 142/52 96 Room Air 94.1 I & O Intake and Output 01/04/17 07:00 Intake Total 2910 ml Output Total 250 ml Balance 2660 ml Intake Oral 360 ml IV Total 2550 ml Output Urine Total 250 ml # Voids 6 # Bowel Movements 2 PHYSICAL EXAM Physical Exam General: No acute distress. Laying in bed. On room air. Mental status: Alert and oriented Chest: Air movement: good. Auscultation: clear throughout Cardiovascular: Rate: normal. Rhythm: regular. Murmur: none. Abdomen: Bowel sounds: normal. Soft. Nondistended. Tenderness: Minimally tender in the epigastric and lower abdominal area.. No guarding. No rebound. Extremities: Trace bilateral lower extremity edema. ASSESSMENT/PLAN Assessment/Plan 1. Melena with anemia and excessive aspirin use: Hemoglobin down to 7.5 today. She does tend to run around 8. We'll transfuse 2 units packed red blood cells since she has been having weakness and feeling cold all the time. Check iron, B12 and folate levels. Check reticulocyte count. These don't appear to have been checked since 2013. Explained to the patient that she did not need to take 4 full strength aspirin every day. We'll hold her aspirin for right now. 2. Abnormal UA consistent with UTI: Multiple organisms. Continue empiric treatment with Rocephin. Recheck urine to see if there is a single species. 3. Prerenal azotemia secondary to vasomotor etiology and dehydration: Improving with IV fluids. 4. Hyperkalemia secondary to dehydration: Resolved. Continue to monitor. 5. Bradycardia: Resolved with adjustment medications and discontinuation of the beta avelino. 6. Hypertension: Appears to be well controlled with present medications 7. Debilitation: Continue PT and OT evaluation and treatment 8. Hypothyroidism: Free T4 was a little bit low but we will make adjustments as medications at this time yet. 9. Mild protein malnutrition: Nutrition consult. 10. Nausea and vomiting/diarrhea: Resolved nausea and vomiting. Advance diet. Still with loose stools per patient report. We'll add Questran twice a day when necessary 11. CODE STATUS: Discussed with present and she desires to be a DNR status. She is capable of making her own decisions and we'll proceed with changing her to a DNR status. 12. Disposition: We'll see if she needs fdc although she's been somewhat resistant to that in the past. Continue with physical occupational therapy recommendations. Problems: COMMENT Lab Laboratory Tests Test 01/04/17 03:45 White Blood Count 7.7x10^3/uL (4.0-11.0) Red Blood Count 2.23x10^6/uL (3.50-5.40) Hemoglobin 7.5g/dL (12.0-15.5) Hematocrit 23.4% (36.0-47.0) Mean Corpuscular Volume 105fL (79-100) Mean Corpuscular Hemoglobin 34pg (25-35) Mean Corpuscular Hemoglobin Concent 32g/dL (31-37) Red Cell Distribution Width 15.8% (11.5-14.5) Platelet Count 160x10^3/uL (140-400) Neutrophils (%) (Auto) 63% (31-73) Lymphocytes (%) (Auto) 21% (24-48) Monocytes (%) (Auto) 11% (0-9) Eosinophils (%) (Auto) 4% (0-3) Basophils (%) (Auto) 1% (0-3) Neutrophils # (Auto) 4.9x10^3uL (1.8-7.7) Lymphocytes # (Auto) 1.6x10^3/uL (1.0-4.8) Monocytes # (Auto) 0.9x10^3/uL (0.0-1.1) Eosinophils # (Auto) 0.3x10^3/uL (0.0-0.7) Basophils # (Auto) 0.1x10^3/uL (0.0-0.2) Sodium Level 144mmol/L (136-145) Potassium Level 4.1mmol/L (3.5-5.1) Chloride Level 114mmol/L (98-107) Carbon Dioxide Level 19mmol/L (21-32) Anion Gap 11 (6-14) Blood Urea Nitrogen 25mg/dL (7-20) Creatinine 1.0mg/dL (0.6-1.0) Estimated GFR (Cockcroft-Gault) 52.7 BUN/Creatinine Ratio 25 (6-20) Glucose Level 75mg/dL (70-99) Calcium Level 7.9mg/dL (8.5-10.1) Total Bilirubin 0.1mg/dL (0.2-1.0) Aspartate Amino Transf (AST/SGOT) 14U/L (15-37) Alanine Aminotransferase (ALT/SGPT) 9U/L (14-59) Alkaline Phosphatase 62U/L (46-116) Total Protein 5.1g/dL (6.4-8.2) Albumin 2.3g/dL (3.4-5.0) Albumin/Globulin Ratio 0.8 (1.0-1.7) LENNOX JENKINS MD Jan 04, 2017 10:53
--- NOTE | 2017-01-04 12:38 | PDOC ---
G I PROGRESS NOTE Subjective No real complaints other than continued loose stools. "Black". Tolerating diet. Physical Exam Lungs clear. RRR Abdomen soft, not distended nor tender. Review of Relevant I have reviewed the following items janna (where applicable) has been applied. Labs Laboratory Tests Test 01/02/17 12:40 2 13:15 01/02/17 13:40 01/03/17 04:35 White Blood Count 12.5x10^3/uL (4.0-11.0) 9.6x10^3/uL (4.0-11.0) Red Blood Count 3.03x10^6/uL (3.50-5.40) 2.42x10^6/uL (3.50-5.40) Hemoglobin 10.2g/dL (12.0-15.5) 8.2g/dL (12.0-15.5) Hematocrit 32.1% (36.0-47.0) 26.0% (36.0-47.0) Mean Corpuscular Volume 106fL (79-100) 108fL (79-100) Mean Corpuscular Hemoglobin 34pg (25-35) 34pg (25-35) Mean Corpuscular Hemoglobin Concent 32g/dL (31-37) 32g/dL (31-37) Red Cell Distribution Width 16.3% (11.5-14.5) 15.9% (11.5-14.5) Platelet Count 216x10^3/uL (140-400) 156x10^3/uL (140-400) Neutrophils (%) (Auto) 74% (31-73) 69% (31-73) Lymphocytes (%) (Auto) 15% (24-48) 18% (24-48) Monocytes (%) (Auto) 8% (0-9) 9% (0-9) Eosinophils (%) (Auto) 3% (0-3) 3% (0-3) Basophils (%) (Auto) 1% (0-3) 1% (0-3) Neutrophils # (Auto) 9.2x10^3uL (1.8-7.7) 6.6x10^3uL (1.8-7.7) Lymphocytes # (Auto) 1.9x10^3/uL (1.0-4.8) 1.7x10^3/uL (1.0-4.8) Monocytes # (Auto) 0.9x10^3/uL (0.0-1.1) 0.9x10^3/uL (0.0-1.1) Eosinophils # (Auto) 0.3x10^3/uL (0.0-0.7) 0.3x10^3/uL (0.0-0.7) Basophils # (Auto) 0.1x10^3/uL (0.0-0.2) 0.1x10^3/uL (0.0-0.2) Sodium Level 143mmol/L (136-145) 145mmol/L (136-145) Potassium Level 5.7mmol/L (3.5-5.1) 4.5mmol/L (3.5-5.1) Chloride Level 111mmol/L (98-107) 114mmol/L (98-107) Carbon Dioxide Level 19mmol/L (21-32) 19mmol/L (21-32) Anion Gap 13 (6-14) 12 (6-14) Blood Urea Nitrogen 46mg/dL (7-20) 38mg/dL (7-20) Creatinine 1.3mg/dL (0.6-1.0) 1.2mg/dL (0.6-1.0) Estimated GFR (Cockcroft-Gault) 38.9 42.7 BUN/Creatinine Ratio 35 (6-20) Glucose Level 96mg/dL (70-99) 85mg/dL (70-99) Calcium Level 8.7mg/dL (8.5-10.1) 8.1mg/dL (8.5-10.1) Total Bilirubin 0.2mg/dL (0.2-1.0) Aspartate Amino Transf (AST/SGOT) 19U/L (15-37) Alanine Aminotransferase (ALT/SGPT) 14U/L (14-59) Alkaline Phosphatase 97U/L (46-116) Troponin I Quantitative < 0.017ng/mL (0.000-0.055) Total Protein 6.7g/dL (6.4-8.2) Albumin 3.2g/dL (3.4-5.0) Albumin/Globulin Ratio 0.9 (1.0-1.7) Lipase 208U/L (73-393) Urine Collection Type Unknown Urine Color Yellow Urine Clarity Cloudy Urine pH 5.0 Urine Specific [place] 1.010 Urine Protein 30mg/dL (NEG-TRACE) Urine Glucose (UA) Negativemg/dL (NEG) Urine Ketones (Stick) Negativemg/dL (NEG) Urine Blood Moderate (NEG) Urine Nitrite Negative (NEG) Urine Bilirubin Negative (NEG) Urine Urobilinogen Dipstick 0.2mg/dL (0.2 mg/dL) Urine Leukocyte Esterase Large (NEG) Urine RBC 6-10/HPF (0-2) Urine WBC >40/HPF (0-4) Urine Squamous Epithelial Cells Mod/LPF Urine Bacteria Many/HPF (0-FEW) Urine Hyaline Casts Moderate/HPF Stool Occult Blood Negative (NEG) Thyroid Stimulating Hormone (TSH) 1.667uIU/mL (0.358-3.74) Free Thyroxine 0.71ng/dL (0.76-1.46) Test 01/04/17 03:45 White Blood Count 7.7x10^3/uL (4.0-11.0) Red Blood Count 2.23x10^6/uL (3.50-5.40) Hemoglobin 7.5g/dL (12.0-15.5) Hematocrit 23.4% (36.0-47.0) Mean Corpuscular Volume 105fL (79-100) Mean Corpuscular Hemoglobin 34pg (25-35) Mean Corpuscular Hemoglobin Concent 32g/dL (31-37) Red Cell Distribution Width 15.8% (11.5-14.5) Platelet Count 160x10^3/uL (140-400) Neutrophils (%) (Auto) 63% (31-73) Lymphocytes (%) (Auto) 21% (24-48) Monocytes (%) (Auto) 11% (0-9) Eosinophils (%) (Auto) 4% (0-3) Basophils (%) (Auto) 1% (0-3) Neutrophils # (Auto) 4.9x10^3uL (1.8-7.7) Lymphocytes # (Auto) 1.6x10^3/uL (1.0-4.8) Monocytes # (Auto) 0.9x10^3/uL (0.0-1.1) Eosinophils # (Auto) 0.3x10^3/uL (0.0-0.7) Basophils # (Auto) 0.1x10^3/uL (0.0-0.2) Sodium Level 144mmol/L (136-145) Potassium Level 4.1mmol/L (3.5-5.1) Chloride Level 114mmol/L (98-107) Carbon Dioxide Level 19mmol/L (21-32) Anion Gap 11 (6-14) Blood Urea Nitrogen 25mg/dL (7-20) Creatinine 1.0mg/dL (0.6-1.0) Estimated GFR (Cockcroft-Gault) 52.7 BUN/Creatinine Ratio 25 (6-20) Glucose Level 75mg/dL (70-99) Calcium Level 7.9mg/dL (8.5-10.1) Total Bilirubin 0.1mg/dL (0.2-1.0) Aspartate Amino Transf (AST/SGOT) 14U/L (15-37) Alanine Aminotransferase (ALT/SGPT) 9U/L (14-59) Alkaline Phosphatase 62U/L (46-116) Total Protein 5.1g/dL (6.4-8.2) Albumin 2.3g/dL (3.4-5.0) Albumin/Globulin Ratio 0.8 (1.0-1.7) Laboratory Tests Test 01/04/17 03:45 White Blood Count 7.7x10^3/uL (4.0-11.0) Red Blood Count 2.23x10^6/uL (3.50-5.40) Hemoglobin 7.5g/dL (12.0-15.5) Hematocrit 23.4% (36.0-47.0) Mean Corpuscular Volume 105fL (79-100) Mean Corpuscular Hemoglobin 34pg (25-35) Mean Corpuscular Hemoglobin Concent 32g/dL (31-37) Red Cell Distribution Width 15.8% (11.5-14.5) Platelet Count 160x10^3/uL (140-400) Neutrophils (%) (Auto) 63% (31-73) Lymphocytes (%) (Auto) 21% (24-48) Monocytes (%) (Auto) 11% (0-9) Eosinophils (%) (Auto) 4% (0-3) Basophils (%) (Auto) 1% (0-3) Neutrophils # (Auto) 4.9x10^3uL (1.8-7.7) Lymphocytes # (Auto) 1.6x10^3/uL (1.0-4.8) Monocytes # (Auto) 0.9x10^3/uL (0.0-1.1) Eosinophils # (Auto) 0.3x10^3/uL (0.0-0.7) Basophils # (Auto) 0.1x10^3/uL (0.0-0.2) Sodium Level 144mmol/L (136-145) Potassium Level 4.1mmol/L (3.5-5.1) Chloride Level 114mmol/L (98-107) Carbon Dioxide Level 19mmol/L (21-32) Anion Gap 11 (6-14) Blood Urea Nitrogen 25mg/dL (7-20) Creatinine 1.0mg/dL (0.6-1.0) Estimated GFR (Cockcroft-Gault) 52.7 BUN/Creatinine Ratio 25 (6-20) Glucose Level 75mg/dL (70-99) Calcium Level 7.9mg/dL (8.5-10.1) Total Bilirubin 0.1mg/dL (0.2-1.0) Aspartate Amino Transf (AST/SGOT) 14U/L (15-37) Alanine Aminotransferase (ALT/SGPT) 9U/L (14-59) Alkaline Phosphatase 62U/L (46-116) Total Protein 5.1g/dL (6.4-8.2) Albumin 2.3g/dL (3.4-5.0) Albumin/Globulin Ratio 0.8 (1.0-1.7) Microbiology 01/02/17 Urine Culture - Preliminary, Resulted 01/02/17 Urine Culture Result 1 (ESTEBAN) - Preliminary, Resulted Medications Current Medications Sodium Chloride (Iv Sodium Chloride 0.9% 1000ml Bag) 1,000 ml @ 120 mls/hr 1X ONCE IV Last administered on 01/02/17t 13:38; Start 01/02/17 at 13:15; Stop at 21:34; Status DC Acetaminophen (Tylenol Arthritis) 650 mg TID PO ; Start 01/03/17 at 09:00; Status Cancel Calcium Carbonate/ Glycine (Oscal) 500 mg BID PO Last administered on 01/04/17 08:08; Start 01/03/17 at 09:00 Cyanocobalamin (Vitamin B-12) 1,000 mcg DAILY PO Last administered on 01/04/17 08:09; Start 01/03/17 at 09:00 Duloxetine HCl (Cymbalta) 60 mg DAILY PO Last administered on 01/04/17 08:09; Start 01/03/17 at 09:00 Gabapentin (Neurontin) 300 mg BID PO Last administered on 01/04/17 08:09; Start 01/02/17 at 23:00 Acetaminophen/ Hydrocodone Bitart (Lortab 7.5/325) 7.5 tab QID PO ; Start at 09:00; Status Cancel Metoprolol Tartrate (Lopressor) 50 mg BID PO ; Start 01/03/17 at 09:00; Stop 01/03 at 09:00; Status DC Lisinopril (Prinivil) 40 mg BID PO ; Start 01/03/17 at 09:00; Stop 01/03/17 at 09: 00; Status DC Pantoprazole Sodium (Protonix) 40 mg DAILYAC PO Last administered on 01/04/17 07:52; Start 01/03/17 at 07:30 Ferrous Sulfate (Feosol) 325 mg TIDWMEALS PO Last administered on 01/04/17 07: 52; Start 01/03/17 at 08:00 Levothyroxine Sodium (Synthroid) 200 mcg DAILY07 PO Last administered on 05:51; Start 01/03/17 at 07:00 Nifedipine (Procardia Xl) 60 mg BID PO Last administered on 01/04/17 08:08; Start 01/03/17 at 09:00 Oxybutynin Chloride 5 mg 5 mg [id number] PO Last administered on 01/04/17 08:08; Start 01/03/17 at 09:00 Ceftriaxone Sodium 1 gm/ Sodium Chloride 50 ml @ 100 mls/hr QHS IV Last administered on 01/03/17 21:10; Start 01/02/17 at 23:00 Sodium Chloride (Iv Sodium Chloride 0.9% 1000ml Bag) 1,000 ml @ 120 mls/hr Q8H20M IV Last administered on 01/04/17 10:15; Start 01/02/17 at 22:30 Furosemide (Lasix) 20 mg 1X ONCE IVP Last administered on 01/03/17 09:01; Start 01/03/17 at 08:00; Stop 01/03/17 at 08:01; Status DC Acetaminophen (Tylenol) 650 mg PRN Q6HRS PRN PO MILD PAIN / TEMP Last administered on 01/04/17 08:07; Start 01/03/17 at 04:15; Stop 01/04/17 at 10:47; Status DC Nystatin (Nystop) 1 ama BID TP Last administered on 01/04/17 10:16; Start at 11:00 Clotrimazole (Lotrimin) 1 ama BID TP Last administered on 01/04/17 10:16; Start 01/03/17 at 11:00 Acetaminophen (Tylenol) 650 mg PRN Q6HRS PRN PO MILD PAIN / TEMP; Start at 10:30 Furosemide (Lasix) 20 mg 1X PRN PRN IV Blood transfusion; Start 01/04/17 at 10: 30; Stop 01/05/17 at 10:29 Diphenhydramine HCl (Benadryl) 25 mg 1X PRN PRN PO prior to blood transfusion; Start 01/04/17 at 10:30; Stop 01/05/17 at 10:29 Cholestyramine Resin (Questran Light) 4 gm PRN BID PRN PO DIARRHEA; Start at 10:30 Active Scripts Active Bactrim Ds Tablet (Sulfamethoxazole/Trimethoprim) 1 Each Tablet 1 Tab PO BID Metoprolol Tartrate 50 Mg Tablet 0.5 Tab PO BID Reported Calcium (Calcium Carbonate) 500 Mg Tablet 500 Mg PO Vitamin B-12 (Cyanocobalamin (Vitamin B-12)) 50 Mcg Tablet 50 Mcg PO Synthroid (Levothyroxine Sodium) 200 Mcg Tablet 200 Mcg PO DAILYAC Detrol La (Tolterodine Tartrate) 4 Mg Cap.er.24h 4 Mg PO DAILY Metoprolol Tartrate 50 Mg Tablet 1 Tab PO BID Enalapril Maleate 20 Mg Tablet 1 Tab PO BID Losartan Potassium 50 Mg Tablet 50 DAILY Furosemide 20 Mg Tablet 20 PRN DAILY PRN Duloxetine Hcl 60 Mg Capsule. 60 Mg DAILY Gabapentin 300 Mg Capsule 300 Mg BID Nifedipine Er (Nifedipine) 60 Mg Tab.er.24 60 Mg PO BID Vitamin B-12 (Cyanocobalamin (Vitamin B-12)) 1,000 Mcg Tablet 1.5 Tab PO DAILY Imodium A-D (Loperamide Hcl) 1 Mg/7.5 Ml Liquid 1 Mg PO Miralax (Polyethylene Glycol 3350) 17 Gm Powd.pack 1 Packet PO DAILY Nexium Capsule (Esomeprazole Magnesium) 20 Mg Capsule. 1 Cap PO DAILY Levothyroxine Sodium 200 Mcg Tablet 1 Tab PO DAILY Arthritis Pain (Acetaminophen) 650 Mg Tablet.er 650 Mg PO TID [place] 7.5-325 Tablet (Acetaminophen/Hydrocodone Bitart) 1 Each Tablet 7.5 Tab PO QID Enalapril Maleate 20 Mg Tablet 20 Mg PO BID Nifedical Xl (Nifedipine) 60 Mg Tab.er.24 60 Mg PO DAILY Ameena Root 550 Mg Capsule 550 Mg PO Q6HRS Aspirin 325 Mg Tablet 325 Mg PO BID Calcium + D3 Er Tablet (Calcium Carb & Cit/Vitamin D3) 1 Each Tablet.er 1 Each PO BID Ferrous Sulfate 325 Mg Tablet. 325 Mg PO TIDAC Uloric (Febuxostat) 40 Mg Tablet 40 Mg PO DAILY Duloxetine Hcl 30 Mg Capsule. 60 Mg PO DAILY Detrol La (Tolterodine Tartrate) 4 Mg Cap.er.24h 4 Mg PO DAILY Vitals/I & O Vital Sign - Last 24 Hours 01/03/17 01/03/17 01/03/17 01/03/17 15:00 19:00 20:00 20:23 Temp 98.4 97.3 97.3 98.4 97.3 97.3 Pulse 60 76 76 Resp 14 18 18 B/P 138/50 156/71 156/71 Pulse Ox 93 97 97 O2 Delivery Room Air Room Air Room Air Room Air 01/03/17 01/03/17 01/04/17 01/04/17 21:11 23:03 03:29 07:00 Temp 97.0 97.6 98.2 97.0 97.6 98.2 Pulse 76 72 72 76 Resp 20 20 20 B/P 156/71 142/52 137/52 122/74 Pulse Ox 94 96 98 O2 Delivery Room Air Room Air Nasal Cannula O2 Flow Rate 2.0 01/04/17 01/04/17 01/04/17 08:08 08:14 11:00 Temp 98.2 98.2 Pulse 72 70 Resp 22 B/P 137/52 124/77 Pulse Ox 97 O2 Delivery Room Air Nasal Cannula O2 Flow Rate 2.0 Intake and Output 01/03/17 01/03/17 01/04/17 15:00 23:00 07:00 Intake Total 1860 ml 1050 ml Output Total 250 ml Balance 1860 ml 800 ml Problem List Problems Medical Problems: (1) Fungal skin infection Status: Acute (2) Hypokalemia Status: Acute (3) Lower GI bleed Status: Acute (4) Nausea & vomiting Status: Acute (5) UTI (urinary tract infection) Status: Acute (6) Weakness Status: Acute Assessment Anemia, chronic. Unclear black stools are melena or just her iron, given heme negative in ER. Plan of Care: Continue current Tx, Mgmt Plan of Care Note Agree with transfuse and recheck hematopoetic factors. IRVING RAMIREZ MD Jan 04, 2017 12:38
[2017-01-04] MEDS: CEFTRIAXONE SODIUM 1 GM in IV NORMAL SALINE 50ML 50 ML IV SCH (20:05)
[2017-01-04 23:02] LABS: BILIRUBIN,URINE NEGATIVE (NEG); GLUCOSE,URINE NEGATIVE (NEG); NITRITE,URINE NEGATIVE (NEG); PROTEIN,URINE NEGATIVE (NEG-TRACE); UROBILINOGEN,URINE 0.2 mg/dL (0.2 mg/dL)
[2017-01-04 23:11] LABS: BACTERIA,URINE 0 /HPF (0-FEW); RBC,URINE OCC /HPF (0-2); SQUAMOUS EPITHELIAL CELL,UR MOD /LPF
[2017-01-05] VITALS (9 sets, daily range): BP systolic 121–154; BP diastolic 49–60
[2017-01-05] MEDS: ACETAMINOPHEN 325 MG TABLET. PO PRN ×3 (00:53→20:46)
[2017-01-05 06:05] LABS: HEMOGLOBIN 9.6 g/dL (12.0-15.5); RETIC COUNT 1.2 % (0.5-2.5)
[2017-01-05 06:23] LABS: CALCIUM 8.2 mg/dL (8.5-10.1); CREATININE 0.9 mg/dL (0.6-1.0); GFR 59.5; POTASSIUM 4.1 mmol/L (3.5-5.1)
[2017-01-05] MEDS: LEVOTHYROXINE 100 MCG TABLET PO SCH (06:25)
--- NOTE | 2017-01-05 08:12 | PDOC ---
SUBJECTIVE Subjective Feels a little bit better. Not feeling is cold after the blood transfusion. Denies any shortness of breath or chest pain. Tolerating more regular diet. She does still have some occasional abdominal discomfort. Diarrhea has improved. She does complain of some posterior neck pain. OBJECTIVE Vital Signs Vital Signs Date Time Temp Pulse Resp B/P Pulse Ox O2 Delivery O2 Flow Rate FiO2 01/05/17 04:02 98.1 87 18 137/54 98.1 01/05/17 03:03 98.1 90 18 130/55 98.1 01/05/17 03:01 Room Air 01/05/17 02:00 98.1 90 18 125/49 98.1 01/05/17 01:01 98.2 83 18 132/56 98.2 01/04/17 23:39 98.7 88 18 136/55 98.7 01/04/17 23:00 Room Air 01/04/17 22:38 98.6 77 18 131/48 98.6 01/04/17 21:40 98.4 75 18 128/54 98.4 01/04/17 21:22 98.0 78 18 143/57 98.0 01/04/17 20:07 113 147/57 01/04/17 20:03 Room Air 01/04/17 19:00 97.3 113 20 147/57 96 Room Air 97.3 01/04/17 15:00 97.3 78 18 120/66 96 Nasal Cannula 2.0 97.3 01/04/17 11:00 98.2 70 22 124/77 97 Nasal Cannula 2.0 98.2 01/04/17 08:14 Room Air 01/04/17 08:08 72 137/52 I & O Intake and Output 01/05/17 07:00 Intake Total 3920 ml Output Total 3100 ml Balance 820 ml Intake Oral 2490 ml IV Total 530 ml Blood Product IV Normal Saline Flush 900 ml Output Urine Total 2700 ml Stool Total 400 ml # Bowel Movements 2 PHYSICAL EXAM Physical Exam General: No acute distress. Sitting in chair. On room air. Mental status: Alert and oriented Chest: Air movement: Fair throughout. Auscultation: clear throughout Cardiovascular: Rate: normal. Rhythm: regular. Murmur: none. Abdomen: Bowel sounds: normal. Soft. Nondistended. Tenderness: Minimally tender in the epigastric and lower abdominal area.. No guarding. No rebound. Extremities: Trace bilateral lower extremity edema. Neck: Mildly tender throughout the neck and upper shoulders to palpation. ASSESSMENT/PLAN Assessment/Plan 1. Melena with anemia and excessive aspirin use: Hemoglobin improved after transfusion of 2 units packed red blood cells. Repeat test tomorrow to see if she remained stable. Explained to the patient that she did not need to take 4 full strength aspirin every day. We'll hold her aspirin for right now. 2. Abnormal UA consistent with UTI: First sample showed multiple organisms. Continue empiric treatment with Rocephin. Repeat urine still abnormal. Await culture results. 3. Prerenal azotemia secondary to vasomotor etiology and dehydration: Improved with IV fluids. 4. Hyperkalemia secondary to dehydration: Resolved. Continue to monitor. 5. Bradycardia: Resolved with adjustment medications and discontinuation of the beta avelino. 6. Hypertension: Appears to be well controlled with present medications 7. Debilitation: Continue PT and OT evaluation and treatment. Patient not interested in doing shelter for strengthening and would prefer to go home and continue home physical therapy. 8. Hypothyroidism: Free T4 was a little bit low but no adjustments to medications at this time yet. 9. Mild protein malnutrition: Nutrition consult. 10. Nausea and vomiting/diarrhea: Resolved nausea and vomiting. Advance diet. Diarrhea improved today. Continue Questran twice a day when necessary 11. Neck pain: Probably due to arthritis. Tylenol as needed. 11. CODE STATUS: Discussed with present and she desires to be a DNR status. She is capable of making her own decisions and we'll proceed with changing her to a DNR status. 12. Disposition: Not interested in shelter at time of discharge. Likely will be discharged to home with physical therapy there. Repeat hemoglobin in the morning. Await repeat urine culture results. Possibly home in the next day or so with home health. Problems: COMMENT Lab Laboratory Tests Test 01/04/17 21:22 01/05/17 05:10 Urine Collection Type Unknown Urine Color Yellow Urine Clarity Clear Urine pH 6.0 Urine Specific [place] 1.010 Urine Protein Negativemg/dL (NEG-TRACE) Urine Glucose (UA) Negativemg/dL (NEG) Urine Ketones (Stick) Negativemg/dL (NEG) Urine Blood Negative (NEG) Urine Nitrite Negative (NEG) Urine Bilirubin Negative (NEG) Urine Urobilinogen Dipstick 0.2mg/dL (0.2 mg/dL) Urine Leukocyte Esterase Small (NEG) Urine RBC Occ/HPF (0-2) Urine WBC 5-10/HPF (0-4) Urine Squamous Epithelial Cells Mod/LPF Urine Bacteria 0/HPF (0-FEW) Urine Mucus Slight/LPF Hemoglobin 9.6g/dL (12.0-15.5) Reticulocyte Count (auto) 1.2% (0.5-2.5) Sodium Level 141mmol/L (136-145) Potassium Level 4.1mmol/L (3.5-5.1) Chloride Level 114mmol/L (98-107) Carbon Dioxide Level 17mmol/L (21-32) Anion Gap 10 (6-14) Blood Urea Nitrogen 17mg/dL (7-20) Creatinine 0.9mg/dL (0.6-1.0) Estimated GFR (Cockcroft-Gault) 59.5 Glucose Level 75mg/dL (70-99) Calcium Level 8.2mg/dL (8.5-10.1) Iron Level 96ug/dL (50-170) LENNOX JENKINS MD Jan 05, 2017 08:12
[2017-01-05] MEDS: DULOXETINE HCL 30 MG CAPSULE.DR. PO SCH (08:43)
[2017-01-05] MEDS: CYANOCOBALAMIN (VITAMIN B-12) 1,000 MCG TABLET. PO SCH (08:43)
[2017-01-05] MEDS: NIFEDIPINE ER 30 MG TAB.ER.24H PO SCH ×2 (08:43→20:46)
[2017-01-05] MEDS: FERROUS SULFATE 325 MG TABLET PO SCH ×3 (08:43→17:00)
[2017-01-05] MEDS: OXYBUTYNIN CHLORIDE 5 MG TABLET PO SCH ×3 (08:44→20:46)
[2017-01-05] MEDS: GABAPENTIN 300 MG CAPSULE. PO SCH ×2 (08:44→20:46)
[2017-01-05] MEDS: CALCIUM CARBONATE 500 MG TABLET PO SCH ×2 (08:44→20:46)
[2017-01-05] MEDS: PANTOPRAZOLE 40 MG TABLET. PO SCH (08:44)
[2017-01-05] MEDS: IV NORMAL SALINE 1000ML BAG 1,000 ML IV SCH ×2 (10:57→17:10)
[2017-01-05] MEDS: NYSTATIN TOPICAL POWDER 15GM BOTTLE. TP SCH ×2 (11:03→20:48)
[2017-01-05] MEDS: CLOTRIMAZOLE 1% TOPICAL CREAM 15GM TUBE. TP SCH ×2 (11:03→20:48)
--- NOTE | 2017-01-05 12:51 | PDOC ---
Subjective: Subjective: Feeling betters after transfusion. No BM today, but discusses irregular habits , seems mostly diarrhea. Objective: Vital Signs: Vital Signs Date Time Temp Pulse Resp B/P Pulse Ox O2 Delivery O2 Flow Rate FiO2 01/05/17 08:43 80 121/50 01/05/17 08:00 Room Air 01/05/17 07:10 98.5 18 94 98.5 01/04/17 15:00 2.0 Labs: Laboratory Tests Test 01/04/17 21:22 01/05/17 05:10 Urine Collection Type Unknown Urine Color Yellow Urine Clarity Clear Urine pH 6.0 Urine Specific [place] 1.010 Urine Protein Negativemg/dL Urine Glucose (UA) Negativemg/dL Urine Ketones (Stick) Negativemg/dL Urine Blood Negative Urine Nitrite Negative Urine Bilirubin Negative Urine Urobilinogen Dipstick 0.2mg/dL Urine Leukocyte Esterase Small Urine RBC Occ/HPF Urine WBC 5-10/HPF Urine Squamous Epithelial Cells Mod/LPF Urine Bacteria 0/HPF Urine Mucus Slight/LPF Hemoglobin 9.6g/dL Reticulocyte Count (auto) 1.2% Sodium Level 141mmol/L Potassium Level 4.1mmol/L Chloride Level 114mmol/L Carbon Dioxide Level 17mmol/L Anion Gap 10 Blood Urea Nitrogen 17mg/dL Creatinine 0.9mg/dL Estimated GFR (Cockcroft-Gault) 59.5 Glucose Level 75mg/dL Calcium Level 8.2mg/dL Iron Level 96ug/dL PE: GEN: NAD, up to chair eating lunch LUNGS: CTAB anteriorly HEART: S1S2 ABD: NABS, S/ND/NT NEURO/PSYCH: A & O 3 A/P: Anemia -on PO iron (now TID) w/ dark stools (sometimes scant red blood as well), also ASA -last EGD in 2005 w/ gastritis (no H. Pylori, bx w/ reactive gastropathy); last colonoscopy in 2006 (h/o diverticulosis, hemorrhoids) -h/o GERD on PPI -h/o varying stools, today relates mostly diarrhea -no previous SB bx, celiac serology -Hgb improved s/p transfusion -- Discussion w/ pt and re: continuing iron (conservative management) or considering repeating EGD/colonoscopy at some point. KVNG TO Jan 05, 2017 12:51
[2017-01-05 13:15] LABS: FOLIC ACID 6.2 ng/mL (>3.0)
[2017-01-05] MEDS: CEFTRIAXONE SODIUM 1 GM in IV NORMAL SALINE 50ML 50 ML IV SCH (20:46)
[2017-01-06] MEDS: IV NORMAL SALINE 1000ML BAG 1,000 ML IV SCH ×2 (01:30→09:50)
[2017-01-06 02:55] VITALS: BP 151/58
[2017-01-06] MEDS: ACETAMINOPHEN 325 MG TABLET. PO PRN (06:04)
[2017-01-06] MEDS: LEVOTHYROXINE 100 MCG TABLET PO SCH (06:04)
[2017-01-06 07:00] VITALS: BP 136/63
--- NOTE | 2017-01-06 08:09 | DISCH ---
DISCHARGE DISCHARGE DATE: Jan 06, 2017 FINAL DIAGNOSIS Problems Medical Problems: (1) lower GI bleed Status: Acute (2) hyperkalemia Status: Acute (3) UTI Status: Acute (4) Nausea & vomiting Status: Acute (5) UTI (urinary tract infection) Status: Acute (6) Weakness Status: Acute CONDITION ON DISCHARGE: Stable HOME HEALTH: Yes (cont PT, OT) PT. HAS FUNCTIONAL LIMITATIONS: Yes FACE TO FACE ENCOUNTER: Yes POST DISCHARGE ORDERS ACTIVITY ORDERS: Activity as tolerated WEIGHT BEARING STATUS: Full weight bearing DIET AFTER DISCHARGE: Cardiac CHECKS AFTER DISCHARGE CHECKS AFTER DISCHARGE: Check blood press - daily FOLLOW-UP PHYSICIAN FOLLOW-UP: Dr Jenkins in one week LENNOX JENKINS MD Jan 06, 2017 08:09
[2017-01-06] MEDS ORDERED: BENZOCAINE/MENTHOL LOZENGE. PO PRN (08:15)
--- NOTE | 2017-01-06 08:24 | PDOC ---
Provider Note Provider Note See discharge summary dictation #[id number] LENNOX JENKINS MD Jan 06, 2017 08:24
[2017-01-06] MEDS: FERROUS SULFATE 325 MG TABLET PO SCH ×2 (08:58→12:52)
[2017-01-06] MEDS: NIFEDIPINE ER 30 MG TAB.ER.24H PO SCH (08:58)
[2017-01-06] MEDS: GABAPENTIN 300 MG CAPSULE. PO SCH (08:58)
[2017-01-06] MEDS: OXYBUTYNIN CHLORIDE 5 MG TABLET PO SCH ×2 (08:58→14:22)
[2017-01-06] MEDS: METOPROLOL TART IMMED RELEASE 25 MG TABLET PO SCH (09:00)
[2017-01-06] MEDS: PANTOPRAZOLE 40 MG TABLET. PO SCH (09:00)
[2017-01-06] MEDS: CYANOCOBALAMIN (VITAMIN B-12) 1,000 MCG TABLET. PO SCH (09:00)
[2017-01-06] MEDS: CALCIUM CARBONATE 500 MG TABLET PO SCH (09:00)
[2017-01-06] MEDS: DULOXETINE HCL 30 MG CAPSULE.DR. PO SCH (09:00)
[2017-01-06] MEDS: NYSTATIN TOPICAL POWDER 15GM BOTTLE. TP SCH (09:01)
[2017-01-06] MEDS: CLOTRIMAZOLE 1% TOPICAL CREAM 15GM TUBE. TP SCH (09:01)
[2017-01-06 10:44] VITALS: BP 122/71
--- NOTE | 2017-01-06 11:39 | PDOC ---
Subjective: Subjective: Feeling okay. A little weak but okay to go home. No bleeding or BM. Objective: Vital Signs: Vital Signs Date Time Temp Pulse Resp B/P Pulse Ox O2 Delivery O2 Flow Rate FiO2 01/06/17 10:44 98.1 113 18 122/71 92 Room Air 98.1 01/06/17 08:00 2.0 Labs: Laboratory Tests Test 01/06/17 03:42 Hemoglobin 9.3g/dL PE: GEN: NAD, up to chair LUNGS: clear anteriorly HEART: S1S2 ABD: NABS, S/ND/NT NEURO/PSYCH: A & O 3 A/P: Anemia -Hgb stable w/o recurrent bleeding -last EGD in 2005 w/ gastritis (no H. Pylori, bx w/ reactive gastropathy); last colonoscopy in 2006 (h/o diverticulosis, hemorrhoids) -h/o GERD on PPI -h/o varying stool type (no BM x 2 days) -- Note DC plans for today. She wants to continue medical therapy and monitoring labs w/ avoidance of ASA prior to planning EGD/colonoscopy. KVNG TO Jan 06, 2017 11:39
[2017-01-06] MEDS ORDERED: CHOL4POW11 PO (11:45)
[2017-01-06] MEDS ORDERED: CLOT15CR4 TP (11:46)
[2017-01-06] MEDS ORDERED: OXYB5TAB7 PO (11:50)
--- NOTE | 2017-01-06 19:44 | DS ---
DATE OF DISCHARGE: 01/06/2017 CHIEF COMPLAINT: Nausea, vomiting, diarrhea with black stools. HISTORY OF PRESENT ILLNESS: The patient is an 86-year-old female with a history of multiple medical problems who had several days of constipation prior to admission and then turned to episodes of emesis with diarrhea. She noted that there was no hematemesis, but the stools were dark black in color, which she originally attributed to the iron that she normally takes. She did start to have abdominal pain, more on the right than the left lower abdomen and felt diaphoretic and sweaty that prompted her evaluation in the Emergency Room. HOSPITAL COURSE: The patient was admitted. It was noted that she was anemic. She had also been taking ____ full strength aspirin a day due to concerns that she has an area of carotid stenosis. She did receive IV fluids. Her hemoglobin dropped to 7.5, she was transfused 2 units of packed red blood cells and she had improvement symptomatically. She was also bradycardia when she came into the hospital. Her metoprolol was discontinued. Once her transfusion was completed, her blood pressure improved and she was having occasional elevations in her heart rate above 100s, so at the time of discharge, her metoprolol was restarted. She was seen in consultation with GI, it was felt that this was not a significant acute bleed and is probably more likely due to gastritis and probably diverticular bleeding with her decrease in hemoglobin, although she is chronically anemic. The patient desired to defer endoscopy at this time. She also had prerenal azotemia secondary to vasomotor etiology and dehydration that improved with IV fluids. She had hyperkalemia when she was admitted, that improved with fluids as well. She has mild protein malnutrition and web offset press feeder was consulted for appropriate diet. Her nausea and vomiting and diarrhea resolved although she was still having occasional 1-2 loose stools a day. She was also seen in consultation with physical therapy due to her weakness and debility home. The recommendation was for the patient to go to alf, but she refused to do that, so we will make arrangements for her to go home with home physical therapy again. At the time of discharge, the patient was afebrile. Her vital signs were stable. She was having some episodes of her heart rate being slightly tachycardic. She was tolerating her diet without any difficulty. She denied any chest pain or shortness of breath. Chest was clear to auscultation bilaterally. The heart had a regular rate and rhythm. The abdomen was soft and nontender. Lower quadrant tenderness had improved. The extremities had trace to 1+ edema bilaterally in the lower legs. She is alert and oriented. LABORATORY DATA: At the time of discharge, hemoglobin 9.3. Repeat urine samples after initial grew out multiple organisms, is still pending at this time. She will be transitioned from ceftriaxone to Bactrim at discharge. Iron, B12 and folic acid studies were within normal limits, free T4 was slightly low at 0.71, but TSH was within normal limits. BUN was 17, creatinine was 0.9. DISCHARGE DIAGNOSES: 1. Melena with anemia secondary to excessive aspirin use, likely due to upper gastrointestinal source and possibly lower GI source. 2. Abnormal UA consistent with a UTI present on admission. 3. Prerenal azotemia secondary to vasomotor etiology and dehydration. 4. Hyperkalemia, resolved. 5. Bradycardia, resolved. 6. Hypertension. 7. Hypothyroidism. 8. Debilitation. 9. Mild protein malnutrition. DISCHARGE DIET: Cardiac diet. DISCHARGE ACTIVITIES: As tolerated. We will continue physical therapy and occupational therapy through home health. DISCHARGE MEDICATIONS: Include Questran Light 4 grams p.o. b.i.d. p.r.n. diarrhea, Lotrimin 1% topical cream to the area around the mouth b.i.d. for 2 weeks, Cymbalta 60 mg p.o. daily, iron 325 mg p.o. t.i.d., gabapentin 300 mg p.o. b.i.d., levothyroxine 200 mcg p.o. daily, Procardia XL 60 mg p.o. b.i.d., nystatin topical powder to the ____ area, Tylenol 650 mg p.o. t.i.d., aspirin was decreased to 325 mg p.o. daily, calcium carbonate with vitamin D 1 p.o. b.i.d., vitamin B12 1000 mcg one and half tablets p.o. daily, enalapril was discontinued, Nexium 40 mg p.o. daily, Uloric 40 mg p.o. daily, Lasix was discontinued, shona root was discontinued, gabapentin 300 mg p.o. b.i.d., [place] 7.5/325 one p.o. q.i.d. p.r.n. None were written for at discharge. Loperamide was discontinued, losartan was discontinued, Lopressor 25 mg one half tablet p.o. b.i.d., MiraLax 1 packet p.o. daily p.r.n., Detrol-LA 4 mg p.o. daily, Bactrim-DS 1 p.o. b.i.d. x 5 days. FOLLOWUP: The patient is to follow up with Dr. Jenkins in approximately 1 week. LENNOX JENKINS MD DR: BAILEY/azael JOB#: [id number] / [id number]
== END 2017-01-06 14:48 | disposition home health service (06) | DRG 378 ==
LOC: ER 12:24 → 5 SOUTH 14:39
PROVIDERS: ADMIT Family Medicine; ATTEND Family Medicine
PROC: 30233N1 Transfusion of Nonautologous Red Blood Cells into Peripheral Vein, Percutaneous Approach (ICD-10-PCS; principal; 2017-01-04)
DX: K92.1 Melena (principal); N39.0 Urinary tract infection, site not specified; E44.1 Mild protein-calorie malnutrition; K57.91 Diverticulosis of intestine, part unspecified, without perforation or abscess with bleeding; E86.0 Dehydration; E87.5 Hyperkalemia; E03.9 Hypothyroidism, unspecified; B36.9 Superficial mycosis, unspecified; E11.22 Type 2 diabetes mellitus with diabetic chronic kidney disease; Z96.659 Presence of unspecified artificial knee joint; N18.3 Chronic kidney disease, stage 3 (moderate); K59.00 Constipation, unspecified; I12.9 Hypertensive chronic kidney disease with stage 1 through stage 4 chronic kidney disease, or unspecified chronic kidney disease; I25.10 Atherosclerotic heart disease of native coronary artery without angina pectoris; I34.0 Nonrheumatic mitral (valve) insufficiency; M10.9 Gout, unspecified; K21.9 Gastro-esophageal reflux disease without esophagitis; K64.9 Unspecified hemorrhoids; M19.90 Unspecified osteoarthritis, unspecified site; F32.9 Major depressive disorder, single episode, unspecified; T39.015A Adverse effect of aspirin, initial encounter; E11.42 Type 2 diabetes mellitus with diabetic polyneuropathy; N32.81 Overactive bladder; F41.9 Anxiety disorder, unspecified; M85.80 Other specified disorders of bone density and structure, unspecified site; Z66 Do not resuscitate; Z86.73 Personal history of transient ischemic attack (TIA), and cerebral infarction without residual deficits; Z90.710 Acquired absence of both cervix and uterus; Z90.49 Acquired absence of other specified parts of digestive tract; Z87.891 Personal history of nicotine dependence; Z79.82 Long term (current) use of aspirin; Z80.0 Family history of malignant neoplasm of digestive organs; Z82.3 Family history of stroke; Z86.010 Personal history of colon polyps; Z91.81 History of falling; Z88.8 Allergy status to other drugs, medicaments and biological substances; Z68.26 Body mass index [BMI] 26.0-26.9, adult; D50.0 Iron deficiency anemia secondary to blood loss (chronic)
CPT/HCPCS: 36415; 51701; 71010; 80048; 80053; 81001; 82274; 82607; 82746; 83540; 83690; 84439; 84443; 84484; 85018; 85027; 85045; 86850; 86900; 86901; 86902; 86922; 87086; 93005; J0696; J7030; P9016; 97110; 97116; 97530; 99285-25

== ENCOUNTER → 2017-05-29 | Outpatient (CLI) | payer MEDICARE ==
[~2017-05-29] MED LIST changes: -ASPI325T4 PO; +ASPI325T8 PO; +CALC500T30 PO; +CHOL4POW11 PO; +CLOT15CR4 TP; +CYAN50TA PO; +DULO60CA44; +FURO20TA3; +GABA300C8; -GING550C PO; +GING550C2 PO; +LEVO200T PO; +LOSA50TA6; +NIFE60TA16 PO; +OXYB5TAB7 PO; +POLY17PO29 PO; -POLY17PO5 PO
[2017-05-29 14:23] LABS: HEMATOCRIT 31.1 % (36.0-47.0); HEMOGLOBIN 10.2 g/dL (12.0-15.5)
[2017-05-29 14:41] LABS: ALBUMIN 3.3 g/dL (3.4-5.0); CALCIUM 8.5 mg/dL (8.5-10.1); CREATININE 1.3 mg/dL (0.6-1.0); GFR 38.9; MAGNESIUM 2.4 mg/dL (1.8-2.4); PHOSPHORUS 5.2 mg/dL (2.6-4.7); POTASSIUM 4.9 mmol/L (3.5-5.1)
[2017-05-30 08:18] LABS: PTH INTACT 72 pg/mL (15-65)
== END | disposition home or self-care (01) ==
LOC: LAB 14:05
PROVIDERS: ATTEND Nurse Practitioner Family
DX: N18.3 Chronic kidney disease, stage 3 (moderate) (principal)
CPT/HCPCS: 36415; 80069; 83735; 83970; 85014; 85018

== ENCOUNTER 2017-07-24 03:21 | Emergency (ER) | payer MEDICARE ==
[~2017-07-24] VITALS: Ht 157.5 cm; Wt 76.7 kg
--- NOTE | 2017-07-24 03:28 | PHYS DOC ---
Past Medical History Past Medical History: Arthritis, Constipation, Diabetes-Type II, Hypertension, [place], Renal Disease, Other Additional Past Medical Histor: torn rotator cuff -right, neurpathy,leaky valve ,CHRONIC PAIN,MAC DEGENERATI Past Surgical History: Cholecystectomy, Hysterectomy, Knee Replacement, Tonsillectomy, Other Additional Past Surgical Histo: hernia, back, cataract, detached retina, hammer toe, blader sling Alcohol Use: None Drug Use: None Adult General Chief Complaint Chief Complaint: DENTAL PROBLEM HPI HPI Patient is a 86 year old FEMALE who presents with bleeding from dental extraction sites. She had 3 teeth extracted from lower jaw earlier today. She is taking aspirin daily and was not told to stop her aspirin. She continues to bleed. Minimal pain. No fever. No difficulty breathing. Review of Systems Review of Systems HENT: Denies nasal congestion or sore throat; bleeding. Respiratory: Denies cough or shortness of breath Integument: Denies rash or skin lesions ; no easy bruising Current Medications Current Medications Current Medications Medications (Trade) Dose Ordered Sig/William Start Time Stop Time Status Last Admin Dose Admin Gelatin (Gelfoam Size 12-7mm) 1 each 1X ONCE 07/24/17 03:45 07/24/17 03:46 DC Lidocaine/ Epinephrine (Xylocaine 1%-Epi 1:100,000) 20 ml 1X ONCE 07/24/17 04:00 07/24/17 04:01 DC Tranexamic Acid (Cyklokapron) 1,000 mg 1X ONCE 07/24/17 04:30 07/24/17 04:31 DC Allergies Allergies Allergies Coded Allergies Type Severity Reaction Last Updated Verified fentanyl Allergy Intermediate rash with patch 04/25/16 Yes acetaminophen Allergy Unknown 07/24/17 Yes propoxyphene Allergy Unknown 07/24/17 Yes Physical Exam Physical Exam Constitutional: Well developed, well nourished, no acute distress, non-toxic appearance. HENT: Normocephalic, atraumatic, bilateral external ears normal, oropharynx moist, no oral exudates, nose normal. 3 extraction sites noted on lower jaw; left molar; right molar and mid incisor. oozing noted. Neck: Normal range of motion, no tenderness, supple, no stridor. Cardiovascular:Heart rate regular rhythm, no murmur Lungs & Thorax: Bilateral breath sounds clear to auscultation Neurologic: Alert and oriented X 3, normal motor function, normal sensory function, no focal deficits noted. Current Patient Data Vital Signs Vital Signs Date Time Temp Pulse Resp B/P (MAP) Pulse Ox O2 Delivery O2 Flow Rate FiO2 07/24/17 03:30 97.5 72 18 95 Room Air 97.5 Lab Values Laboratory Tests Test 07/24/17 04:00 White Blood Count 9.7 x10^3/uL (4.0-11.0) Red Blood Count 2.68 x10^6/uL (3.50-5.40) L Hemoglobin 9.1 g/dL (12.0-15.5) L Hematocrit 27.6 % (36.0-47.0) L Mean Corpuscular Volume 103 fL (79-100) H Mean Corpuscular Hemoglobin 34 pg (25-35) Mean Corpuscular Hemoglobin Concent 33 g/dL (31-37) Red Cell Distribution Width 13.2 % (11.5-14.5) Platelet Count 156 x10^3/uL (140-400) Prothrombin Time 14.6 SEC (11.7-14.0) H Prothrombin Time INR 1.2 (0.8-1.1) H PTT 35 SEC (24-38) Laboratory Tests 07/24/17 04:00 Course & Med Decision Making Course & Med Decision Making Evaluated patient. No airway compromise. Will check platelets and PT/PTT. at 0355 am: Attempted to stop bleeding with gelfoam and lido w epi soaked packing. At 0430 AM bleeding improved on left lower extraction site but mid lower and right lower still soaking gauze. Placed TXA soaked cotton balls over all 3 sites again with gauze to hold pressure. At 5:10 AM the bleeding has stopped. Son coming up. She still needs to keep gauze in and MUST SEE HER DENTIST TODAY. I have spoken with the patient and/or caregivers. I have explained the patient' s condition, diagnosis and treatment plan based on the information available to me at this time. I have answered the patient's and/or caregiver's questions and addressed any concerns. The patient and/or caregivers have as good an understanding of the patient's diagnosis, condition and treatment plan as can be expected at this point. The patient's condition is stable and appropriate for discharge from the emergency department. The patient will pursue further outpatient evaluation with the primary care physician or other designated or consulting physician as outlined in the discharge instructions. The patient and/or caregivers are agreeable to this plan of care and follow-up instructions have been explained in detail. The patient and/or caregivers have received these instructions in written format and have expressed an understanding of the discharge instructions. The patient and/or caregivers are aware that any significant change in condition or worsening of symptoms should prompt an immediate return to this or the closest emergency department or a call to 911. Dragon Disclaimer Dragon Disclaimer This electronic medical record was generated, in whole or in part, using a voice recognition dictation system. Departure Departure Impression: Primary Impression: Surgical wound hemorrhage after dental procedure Disposition: HOME, SELF-CARE Condition: STABLE Referrals: LENNOX JENKINS MD (PCP) Additional Instructions: CALL YOUR DENTIST TODAY; YOU MUST BE SEEN BY THEM TODAY. WE HAVE DONE ALL WE CAN IN THE ER TO STOP THE BLEEDING. YOUR LAB WAS NORMAL HERE SEVERIANO BLUE MD Jul 24, 2017 03:28
[2017-07-24] MEDS ORDERED: GELATIN SPONGE SIZE 12-7MM SPONGE. TP ONE (03:45)
[2017-07-24] MEDS ORDERED: LIDOCAINE 1%/EPI 1:100,000 20 ML VIAL. INJ ONE (04:00)
[2017-07-24 04:09] LABS: HEMATOCRIT 27.6 % (36.0-47.0); HEMOGLOBIN 9.1 g/dL (12.0-15.5); RED BLOOD COUNT 2.68 x10^6/uL (3.50-5.40); RED CELL DISTRIBUTION WIDTH 13.2 % (11.5-14.5); WHITE BLOOD COUNT 9.7 x10^3/uL (4.0-11.0)
[2017-07-24 04:19] LABS: INR 1.2 (0.8-1.1); PROTHROMBIN TIME PATIENT 14.6 SEC (11.7-14.0)
[2017-07-24] MEDS ORDERED: TRANEXAMIC ACID 1,000 MG/10 ML VIAL. TOP ONE ×2 (04:30→05:45)
[2017-07-24 07:49] VITALS: BP 157/70
== END 2017-07-24 07:50 | disposition home or self-care (01) ==
LOC: ER 03:21
DX: K91.840 Postprocedural hemorrhage of a digestive system organ or structure following a digestive system procedure (principal); I12.9 Hypertensive chronic kidney disease with stage 1 through stage 4 chronic kidney disease, or unspecified chronic kidney disease; E11.22 Type 2 diabetes mellitus with diabetic chronic kidney disease; N18.9 Chronic kidney disease, unspecified; Z90.49 Acquired absence of other specified parts of digestive tract; I25.2 Old myocardial infarction; M19.90 Unspecified osteoarthritis, unspecified site; Z90.710 Acquired absence of both cervix and uterus; X58.XXXA Exposure to other specified factors, initial encounter; Y93.89 Activity, other specified; Y99.8 Other external cause status; Y92.89 Other specified places as the place of occurrence of the external cause
CPT/HCPCS: 36415; 85027; 85610; 85730; 96372; 99284; J3490

== ENCOUNTER 2017-07-28 05:55 | Emergency (ER) | payer MEDICARE ==
[2017-07-28] MEDS ORDERED: SURGICEL HEMOSTAT 2X3 EACH. ONE (08:00)
[2017-07-28 10:09] LABS: CALCIUM 8.7 mg/dL (8.5-10.1)
[2017-07-28 10:10] LABS: CREATININE 1.5 mg/dL (0.6-1.0); POTASSIUM 4.9 mmol/L (3.5-5.1)
[2017-07-28 10:18] LABS: INR 1.1 (0.8-1.1); PROTHROMBIN TIME PATIENT 13.4 SEC (11.7-14.0)
[2017-07-28 10:19] LABS: HEMOGLOBIN 6.9 g/dL (12.0-15.5); RED BLOOD COUNT 1.99 x10^6/uL (3.50-5.40)
[2017-07-28 10:20] LABS: BASO # 0.1 x10^3/uL (0.0-0.2); BASO % 1 % (0-3); EOS % 3 % (0-3); HEMATOCRIT 20.7 % (36.0-47.0); LYMPH # 1.6 x10^3/uL (1.0-4.8); LYMPH % 16 % (24-48); MEAN CORPUSCULAR HEMOGLOBIN 35 pg (25-35); MEAN CORPUSCULAR HGB CONC 33 g/dL (31-37); MEAN CORPUSCULAR VOLUME 104 fL (79-100); MONO % 7 % (0-9); NEUT % 73 % (31-73); PLATELET COUNT 174 x10^3/uL (140-400); RED CELL DISTRIBUTION WIDTH 13.3 % (11.5-14.5)
== END 2017-07-28 10:55 | disposition short-term general hospital (02) ==
LOC: ER 05:55
DX: K91.840 Postprocedural hemorrhage of a digestive system organ or structure following a digestive system procedure (principal); D64.9 Anemia, unspecified
CPT/HCPCS: 36415; 80048; 85025; 85610; 85730; 86850; 86900; 86901; 99285

== ENCOUNTER 2018-01-16 11:02 | Inpatient (IN) | payer MEDICARE ==
[2018-01-16] MEDS: TRANEXAMIC ACID 1,000 MG/10 ML VIAL. TOP (12:02)
[2018-01-16 12:26] LABS: ADD MAN DIFF? NO
[2018-01-16 12:31] LABS: BASO # 0.1 x10^3/uL (0.0-0.2); BASO % 1 % (0-3); EOS # 0.3 x10^3/uL (0.0-0.7); EOS % 4 % (0-3); HEMATOCRIT 32.5 % (36.0-47.0); HEMOGLOBIN 10.6 g/dL (12.0-15.5); LYMPH # 1.4 x10^3/uL (1.0-4.8); LYMPH % 20 % (24-48); MEAN CORPUSCULAR HEMOGLOBIN 33 pg (25-35); MEAN CORPUSCULAR HGB CONC 33 g/dL (31-37); MEAN CORPUSCULAR VOLUME 102 fL (79-100); MONO # 0.7 x10^3/uL (0.0-1.1); MONO % 10 % (0-9); NEUT # 4.7 x10^3uL (1.8-7.7); NEUT % 66 % (31-73); PLATELET COUNT 196 x10^3/uL (140-400); RED BLOOD COUNT 3.17 x10^6/uL (3.50-5.40); RED CELL DISTRIBUTION WIDTH 14.5 % (11.5-14.5); WHITE BLOOD COUNT 7.1 x10^3/uL (4.0-11.0)
[2018-01-16 13:04] LABS: ANION GAP 5 (6-14); BLOOD UREA NITROGEN 52 mg/dL (7-20); CALCIUM 8.5 mg/dL (8.5-10.1); CARBON DIOXIDE 25 mmol/L (21-32); CHLORIDE 109 mmol/L (98-107); CREATININE 1.5 mg/dL (0.6-1.0); GFR 32.9; GLUCOSE 102 mg/dL (70-99); MAGNESIUM 2.5 mg/dL (1.8-2.4); SODIUM 139 mmol/L (136-145)
[2018-01-16 13:08] LABS: POTASSIUM 5.8 mmol/L (3.5-5.1)
[2018-01-16] MEDS ORDERED: ONDANSETRON PF 4 MG/2 ML VIAL. IV ×2 (15:00→17:30)
[2018-01-16] MEDS: SODIUM POLYSTYRENE SULFONATE 15 GM/60 ML ORAL.SUSP. PO (15:08)
[2018-01-16 16:03] LABS: POC GLUCOSE 88 mg/dL (70-99)
[2018-01-16] MEDS: FLU VACC QS2017-18 (36MOS+)/PF 0.5 ML SYRINGE. VAX IM (16:22)
[2018-01-16 17:06] LABS: POC GLUCOSE 90 mg/dL (70-99)
[2018-01-16] MEDS ORDERED: hydrALAZINE 20 MG/ML VIAL. IVP (17:30)
[2018-01-16] MEDS ORDERED: MORPHINE SULFATE 2 MG/ML DISP.SYRIN. IV (17:30)
[2018-01-16] MEDS ORDERED: DOCUSATE SODIUM 100 MG CAPSULE. PO (17:30)
[2018-01-16] MEDS ORDERED: traMADol 50 MG TABLET PO (17:30)
[2018-01-16] MEDS: SODIUM BICARBONATE VIAL 150 MEQ in IV STERILE WATER 1,000 ML IV (18:22)
[2018-01-16] MEDS: METOPROLOL TART IMMED RELEASE 25 MG TABLET. PO (20:54)
[2018-01-16] MEDS: ACETAMINOPHEN 325 MG TABLET. PO (20:54)
[2018-01-16] MEDS: GABAPENTIN 300 MG CAPSULE. PO (20:54)
[2018-01-16] MEDS: HYDROcodone/APAP 7.5/325MG 1 TAB TABLET PO (20:54)
[2018-01-16] MEDS: OXYBUTYNIN CHLORIDE 5 MG TABLET PO (20:54)
[2018-01-17 04:09] LABS: ADD MAN DIFF? NO
[2018-01-17 04:14] LABS: BASO # 0.1 x10^3/uL (0.0-0.2); BASO % 1 % (0-3); EOS # 0.3 x10^3/uL (0.0-0.7); EOS % 3 % (0-3); HEMATOCRIT 32.3 % (36.0-47.0); HEMOGLOBIN 10.8 g/dL (12.0-15.5); LYMPH # 1.5 x10^3/uL (1.0-4.8); LYMPH % 19 % (24-48); MEAN CORPUSCULAR HEMOGLOBIN 34 pg (25-35); MEAN CORPUSCULAR HGB CONC 33 g/dL (31-37); MEAN CORPUSCULAR VOLUME 102 fL (79-100); MONO # 0.7 x10^3/uL (0.0-1.1); MONO % 9 % (0-9); NEUT # 5.2 x10^3uL (1.8-7.7); NEUT % 68 % (31-73); PLATELET COUNT 181 x10^3/uL (140-400); RED BLOOD COUNT 3.18 x10^6/uL (3.50-5.40); RED CELL DISTRIBUTION WIDTH 14.2 % (11.5-14.5); WHITE BLOOD COUNT 7.7 x10^3/uL (4.0-11.0)
[2018-01-17 04:35] LABS: ANION GAP 8 (6-14); BLOOD UREA NITROGEN 42 mg/dL (7-20); CALCIUM 8.7 mg/dL (8.5-10.1); CARBON DIOXIDE 26 mmol/L (21-32); CHLORIDE 106 mmol/L (98-107); CREATININE 1.4 mg/dL (0.6-1.0); GFR 35.7; GLUCOSE 94 mg/dL (70-99); POTASSIUM 4.5 mmol/L (3.5-5.1); SODIUM 140 mmol/L (136-145)
[2018-01-17 04:40] LABS: % SAT IRON 27 % (15-34); IRON,SERUM 69 ug/dL (50-170)
[2018-01-17 04:54] LABS: FERRITIN 298 ng/mL (8-252)
[2018-01-17 05:08] LABS: POC GLUCOSE 94 mg/dL (70-99)
[2018-01-17] MEDS: LEVOTHYROXINE 100 MCG TABLET PO (05:55)
[2018-01-17] MEDS: GABAPENTIN 300 MG CAPSULE. PO ×2 (08:10→20:32)
[2018-01-17] MEDS: FEBUXOSTAT 40 MG TABLET PO (08:10)
[2018-01-17] MEDS: FERROUS SULFATE 325 MG TABLET. PO ×3 (08:10→17:02)
[2018-01-17] MEDS: METOPROLOL TART IMMED RELEASE 25 MG TABLET. PO ×3 (08:10→20:32)
[2018-01-17] MEDS: PANTOPRAZOLE 40 MG TABLET.DR. PO (08:11)
[2018-01-17] MEDS: OXYBUTYNIN CHLORIDE 5 MG TABLET PO ×3 (08:11→20:31)
[2018-01-17] MEDS: HYDROcodone/APAP 7.5/325MG 1 TAB TABLET PO ×4 (08:17→20:32)
[2018-01-17 11:07] LABS: FECAL OB PT NEGATIVE (NEG); NEG OBC FOB NEG; POS OBC FOB POS
[2018-01-17] MEDS ORDERED: CHOLESTYRAMINE/ASPARTAME 4 GM PACKET PO (11:30)
[2018-01-17] MEDS: POLYETHYLENE GLYCOL 3350 17 GM PACKET. PO (12:00)
[2018-01-17] MEDS: CLOTRIMAZOLE 1% TOPICAL CREAM 15GM TUBE. TP ×2 (12:00→20:32)
[2018-01-17] MEDS: DULoxetine HCL 30 MG CAPSULE.DR PO (12:33)
[2018-01-17] MEDS: ASPIRIN 325 MG TABLET PO ×2 (12:33→20:31)
[2018-01-17] MEDS: CYANOCOBALAMIN (VITAMIN B-12) 1,000 MCG TABLET. PO (12:33)
[2018-01-17] MEDS: CALCIUM CARB/VIT D3 500/200 TABLET. PO ×2 (12:34→17:02)
[2018-01-17] MEDS: IV 1/2 NORMAL SALINE 1,000 ML IV (17:02)
[2018-01-17] MEDS: ACETAMINOPHEN 325 MG TABLET. PO (20:32)
[2018-01-18 05:34] LABS: ANION GAP 7 (6-14); BLOOD UREA NITROGEN 39 mg/dL (7-20); CALCIUM 8.5 mg/dL (8.5-10.1); CARBON DIOXIDE 27 mmol/L (21-32); CHLORIDE 106 mmol/L (98-107); CREATININE 1.3 mg/dL (0.6-1.0); GFR 38.8; GLUCOSE 86 mg/dL (70-99); POTASSIUM 4.3 mmol/L (3.5-5.1); SODIUM 140 mmol/L (136-145)
[2018-01-18] MEDS: ACETAMINOPHEN 325 MG TABLET. PO (05:42)
[2018-01-18] MEDS: LEVOTHYROXINE 100 MCG TABLET PO (06:31)
[2018-01-18] MEDS: CYANOCOBALAMIN (VITAMIN B-12) 1,000 MCG TABLET. PO (08:31)
[2018-01-18] MEDS: CALCIUM CARB/VIT D3 500/200 TABLET. PO ×2 (08:31→16:54)
[2018-01-18] MEDS: ASPIRIN 325 MG TABLET PO (08:31)
[2018-01-18] MEDS: DULoxetine HCL 30 MG CAPSULE.DR PO (08:31)
[2018-01-18] MEDS: GABAPENTIN 300 MG CAPSULE. PO (08:31)
[2018-01-18] MEDS: OXYBUTYNIN CHLORIDE 5 MG TABLET PO ×2 (08:32→14:18)
[2018-01-18] MEDS: FEBUXOSTAT 40 MG TABLET PO (08:32)
[2018-01-18] MEDS: FERROUS SULFATE 325 MG TABLET. PO ×3 (08:32→16:54)
[2018-01-18] MEDS: METOPROLOL TART IMMED RELEASE 25 MG TABLET. PO (08:33)
[2018-01-18] MEDS: PANTOPRAZOLE 40 MG TABLET.DR. PO (08:33)
[2018-01-18] MEDS: CLOTRIMAZOLE 1% TOPICAL CREAM 15GM TUBE. TP (08:34)
[2018-01-18] MEDS: POLYETHYLENE GLYCOL 3350 17 GM PACKET. PO (08:39)
[2018-01-18] MEDS: HYDROcodone/APAP 7.5/325MG 1 TAB TABLET PO ×3 (08:39→17:00)
[2018-01-18 08:40] LABS: VITAMIN-B12 477 pg/mL (247-911)
[2018-01-18] MEDS ORDERED: NON FORMULARY ITEM (Duloxetine Hcl 60 MG) (09:00)
== END 2018-01-18 19:20 | disposition home or self-care (01) | DRG 919 ==
LOC: ER 11:02 → 5 NORTH 13:32
DX: L76.22 Postprocedural hemorrhage of skin and subcutaneous tissue following other procedure (principal); N17.0 Acute kidney failure with tubular necrosis; E87.5 Hyperkalemia; E11.22 Type 2 diabetes mellitus with diabetic chronic kidney disease; E11.42 Type 2 diabetes mellitus with diabetic polyneuropathy; I48.0 Paroxysmal atrial fibrillation; G56.03 Carpal tunnel syndrome, bilateral upper limbs; D63.1 Anemia in chronic kidney disease; N18.3 Chronic kidney disease, stage 3 (moderate); G56.20 Lesion of ulnar nerve, unspecified upper limb; I12.9 Hypertensive chronic kidney disease with stage 1 through stage 4 chronic kidney disease, or unspecified chronic kidney disease; I25.10 Atherosclerotic heart disease of native coronary artery without angina pectoris; L98.9 Disorder of the skin and subcutaneous tissue, unspecified; M19.90 Unspecified osteoarthritis, unspecified site; M47.816 Spondylosis without myelopathy or radiculopathy, lumbar region; Z96.653 Presence of artificial knee joint, bilateral; Y82.8 Other medical devices associated with adverse incidents; M75.00 Adhesive capsulitis of unspecified shoulder; Z79.82 Long term (current) use of aspirin; Z82.49 Family history of ischemic heart disease and other diseases of the circulatory system; I25.2 Old myocardial infarction; Z90.49 Acquired absence of other specified parts of digestive tract; Z90.710 Acquired absence of both cervix and uterus; Z88.8 Allergy status to other drugs, medicaments and biological substances
CPT/HCPCS: 36415; 80048; 82274; 82607; 82728; 82746; 82962; 83540; 83550; 83735; 85025; 90686; 93306; 97116-GP; 97161-GP; 99285-25